=== PATIENT | male | born 1945 ===

== ENCOUNTER 2017-04-18 10:20 | Inpatient (IN) | payer MEDICARE, MEDICAID ==
[2017-04-18 10:20] VITALS: BMI 23.6
--- NOTE | 2017-04-18 10:59 | C.PDOC ---
History Of Present Illness 72 year old male with a PMHx of Atrial fibrillation, COPD, CAD, CABG and CHF presents to the ED with complaints of chest pain. Patient reports approximately 1 hour prior to arrival, while sitting up in bed, he began to feel localized left sided chest pain. Pain is over the site of his pacemaker. Patient notes associated shortness of breath. H/o similar episodes multiple times before. Patient denies radiation of pain, fever, chills, sweating, nausea, vomiting, weakness, numbness, or other complaints at this time. PMD: Dr. Mauricio Jackson Manufacturing Engineer Machining: Dr. Hansen Time Seen by Provider: 04/18/17 10:44 Chief Complaint (Nursing): Chest Pain History Per: Patient History/Exam Limitations: no limitations Onset/Duration Of Symptoms: Hrs (1 hr prior to arrival) Current Symptoms Are (Timing): Still Present Quality: "Pain". denies: Pressure Associated Symptoms: denies: Nausea, Dyspnea, Syncope Exacerbating Factors: None Alleviating Factors: None Recent travel outside of the [place]: No Additional History Per: Prior Records Past Medical History Reviewed: Historical Data, Nursing Documentation, Vital Signs Vital Signs: Last Vital Signs Temp 98.1 F 04/18/17 16:12 Pulse 71 04/18/17 16:12 Resp 20 04/18/17 16:12 BP 190/83 H 04/18/17 17:36 Pulse Ox 97 04/18/17 16:12 - Medical History PMH: Anemia, Anxiety, Arthritis, Asthma, Atrial Fibrillation, CAD, CHF, COPD, HTN, Hypercholesterolemia, Osteoporosis Surgical History: CABG, Cholecystectomy, Pacemaker - [facility] Procedures CYSTOSCOPY NEC (10/08/13) ESOPHAGOGASTRODUODENOSCOPY [EGD] W/CLOSED BIOPSY (05/31/13) EXERCISE TREATMENT OF MUSCULOSK WHOLE USING ASSIST EQUIPMENT (11/22/16) GAIT TRAINING/AMBULAT TREATMENT USING ASSIST EQUIPMENT (11/22/16) HOME MANAGEMENT TREATMENT (11/25/15) HOME MANAGEMENT TREATMENT USING ASSIST EQUIPMENT (11/22/16) MANUAL THERAPY TECHNIQUES TREATMENT OF MUSCULOSK UP BACK/UE (11/25/15) NEBULIZER THERAPY (05/31/13) OCCUPATIONAL THERAPY (10/12/13) PHYSICAL THERAPY NEC (10/12/13) ROM & JT MOBILITY TRMT MUSCULOSK LOW BACK/LE W ASSIST EQUIP (11/25/15) THERAPEUTIC EXERCISE TREATMENT OF MUSCULOSK LOW BACK/LE (11/25/15) TRANSURETH BLADD BIOPSY (10/08/13) VACCINATION NEC (07/10/13) Family History: States: Unknown Family Hx - Social History Hx Alcohol Use: No Hx Substance Use: No Review Of Systems Constitutional: Negative for: Fever, Chills Cardiovascular: Positive for: Chest Pain. Negative for: Palpitations Respiratory: Positive for: Shortness of Breath. Negative for: Cough Gastrointestinal: Negative for: Nausea, Vomiting, Abdominal Pain, Diarrhea Musculoskeletal: Negative for: Arm Pain Neurological: Negative for: Weakness, Numbness Physical Exam - Physical Exam Appears: Non-toxic, No Acute Distress Skin: Warm, Dry, No Rash, Other (hyperpigmentation of lower extremities) Head: Atraumatic, Normacephalic, No Tenderness Eye(s): bilateral: Normal Inspection, PERRL, EOMI Nose: Normal Oral Mucosa: Moist Neck: Normal ROM, Supple Chest: Symmetrical, No Deformity, Tenderness (tenderness over the pacemake) Cardiovascular: Rhythm Regular, No Murmur Respiratory: No Rales, No Rhonchi, No Wheezing, Other (clear to auscultation bilaterally) Gastrointestinal/Abdominal: Soft, No Tenderness, No Distention, No Guarding, No Rebound Extremity: Normal ROM, No Tenderness, No Pedal Edema, No Calf Tenderness, Capillary Refill (<2 seconds ), No Swelling Neurological/Psych: Oriented x3 Gait: Steady ED Course And Treatment - Laboratory Results Result Diagrams: 04/18/17 11:36 04/18/17 11:36 ECG: Interpreted By Me, Viewed By Me ECG Rhythm: Sinus Rhythm, L BBB ECG Interpretation: No Changes From Prior Interpretation Of ECG: T-wave inversions in 2 and 3. AVF. L BBB unchanged from 03/30/2017. O2 Sat by Pulse Oximetry: 96 (RA) Pulse Ox Interpretation: Normal Progress Note: Spoke to Dr. Jackson, who notes pt h/o EF 20%. 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 Dr Jackson requests patient be admitted to medicine service. Disposition - Disposition Disposition: HOSPITALIZED Disposition Time: 16:55 Condition: STABLE - Clinical Impression Clinical Impression: Chest pain, CHF (congestive heart failure), Anxiety - PA / HUMAN SERVICE WORKER / Resident Statement MD/DO has reviewed & agrees with the documentation as recorded. - Scribe Statement The provider has reviewed the documentation as recorded by the Crescencioibraymundo Fontanez All medical record entries made by the Jaspreet were at my direction and personally dictated by me. I have reviewed the chart and agree that the record accurately reflects my personal performance of the history, physical exam, medical decision making, and the department course for this patient. I have also personally directed, reviewed, and agree with the discharge instructions and disposition.
[2017-04-18 11:47] LABS: BASO % 0.5 % (0.0-2.0); EOS # 0.1 K/uL (0.0-0.7); EOS % 0.9 % (0.0-4.0); HEMATOCRIT 47.7 % (35.0-51.0); LYMPH # 1.5 K/uL (1.0-4.3); LYMPH % 20.1 % (20.0-40.0); MEAN CELL VOLUME 88.2 fL (80.0-94.0); MEAN CORPUSCULAR HEMOGLOBIN 29.7 pg (27.0-31.0); MEAN CORPUSCULAR HGB CONC 33.6 g/dL (33.0-37.0); MEAN PLATELET VOLUME 9.5 fL (7.2-11.7); MONO # 0.4 K/uL (0.0-0.8); MONO % 5.3 % (0.0-10.0); NRBC % 0.1 % (0.0-2.0); RED CELL DISTRIBUTION WIDTH 14.2 % (11.5-14.5); WHITE BLOOD COUNT 7.3 K/uL (4.8-10.8)
[2017-04-18 11:52] LABS: URINE BILIRUBIN NEGATIVE (NEGATIVE); URINE BLOOD NEGATIVE (NEGATIVE); URINE COLOR Yellow (YELLOW); URINE GLUCOSE (UA) NORMAL (Normal); URINE KETONE NEGATIVE (NEGATIVE); URINE LEUKOCYTE ESTERASE NEG Leu/uL (Negative); URINE PROTEIN NEGATIVE (NEGATIVE); URINE UROBILINOGEN NORMAL mg/dL (0.2-1.0)
[2017-04-18 11:58] LABS: INR 1.1
[2017-04-18 12:01] LABS: BILIRUBIN,TOTAL 1.2 mg/dL (0.2-1.3); CALCIUM 9.1 mg/dl (8.6-10.4); GFR AFRICAN-AMERICAN > 60; GLUCOSE,RANDOM 164 mg/dL (75-110); TOTAL PROTEIN 8.3 g/dL (6.3-8.3)
--- NOTE | 2017-04-18 12:09 | RAD ---
Chest x-ray single frontal view History: Chest pain. Comparison none available. Findings: Moderate venous congestion. Right hilar prominence. Cardiomegaly. Status post median sternotomy and CABG. Left-sided pacemaker. Degenerative changes in the spine shoulders. Calcification at aortic knob. Impression: Moderate venous congestion. Right hilar prominence. Cardiomegaly.
[2017-04-18 12:13] LABS: ALB/GLOB RATIO 1.4 (1.0-2.1); ALKALINE PHOSPHATASE 92 U/L (38-126); ALT/SGPT 148 U/L (21-72); AST/SGOT 128 U/L (17-59); BLOOD UREA NITROGEN 16 mg/dL (9-20); CARBON DIOXIDE 28 mmol/L (22-30); CHLORIDE 100 mmol/L (98-107); SODIUM 141 mmol/L (132-148)
[2017-04-18] MEDS ORDERED: Fluticasone Nasal 50 mcg/Spray NAS PRN (15:47)
--- NOTE | 2017-04-18 19:23 | CP.PCM.HP ---
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 Pt began to feel the chest pain while sitting up in bed. Chest pain localized over site of pacemaker on left side of chest. Pt reports multiple prior episodes of similar chest pain. Patient denies fever, chills, palpitations, syncope, diaphoresis, n/ v/d, abdominal pain, weakness or numbness. Present on Admission - Present on Admission Any Indicators Present on Admission: No Review of Systems - Cardiovascular Cardiovascular: Chest Pain, Dyspnea Past Patient History - Past Medical History & Family History Past Medical History?: Yes - Past Social History Smoking Status: Never Smoked - CARDIAC Hx Atrial Fibrillation: Yes Hx Congestive Heart Failure: Yes Hx Hypercholesterolemia: Yes Hx Hypertension: Yes Hx Pacemaker: Yes - PULMONARY Hx Asthma: Yes Hx Chronic Obstructive Pulmonary Disease (COPD): Yes - NEUROLOGICAL Hx Neurological Disorder: Yes Hx Dizziness: Yes - HEENT Hx HEENT Problems: Yes Hx Deafness: Yes (rt ear) - RENAL Hx Chronic Kidney Disease: No - ENDOCRINE/METABOLIC Hx Hypothyroidism: No - HEMATOLOGICAL/ONCOLOGICAL Hx Anemia: Yes - INTEGUMENTARY Hx Dermatological Problems: No - MUSCULOSKELETAL/RHEUMATOLOGICAL Hx Arthritis: Yes Hx Osteoporosis: Yes - GASTROINTESTINAL Hx Gastrointestinal Disorders: Yes Hx Gastroesophageal Reflux: Yes - GENITOURINARY/GYNECOLOGICAL Hx Genitourinary Disorders: Yes Hx Prostate Problems: Yes (BPH) Hx Urinary Tract Infection: Yes - PSYCHIATRIC Hx Anxiety: Yes Hx Substance Use: No - SURGICAL HISTORY Hx Cholecystectomy: Yes Hx Coronary Artery Bypass Graft: Yes - ANESTHESIA Hx Anesthesia: Yes Hx Anesthesia Reactions: No Hx Malignant Hyperthermia: No Meds Home Medications: Home Medication List Medication Instructions Recorded Confirmed Type Enalapril Maleate [Vasotec] 5 mg PO BID #60 tab 04/21/17 Rx Furosemide [Lasix] 20 mg PO DAILY #30 tab 04/21/17 Rx Allergies/Adverse Reactions: Allergies Allergy/AdvReac Type Severity Reaction Status Date / Time morphine Allergy RASH Verified 11/22/16 18:53 Physical Exam - Constitutional Appears: Well - Head Exam Head Exam: ATRAUMATIC, NORMAL INSPECTION, NORMOCEPHALIC - Eye Exam Eye Exam: EOMI, Normal appearance, PERRL Pupil Exam: NORMAL ACCOMODATION, PERRL - ENT Exam ENT Exam: Mucous Membranes Moist, Normal Exam - Neck Exam Neck exam: Positive for: Normal Inspection - Respiratory Exam Respiratory Exam: Decreased Breath Sounds - Cardiovascular Exam Cardiovascular Exam: REGULAR RHYTHM, +S1, +S2 - GI/Abdominal Exam GI & Abdominal Exam: Diminished Bowel Sounds, Soft - Rectal Exam Rectal Exam: Deferred - Neurological Exam Neurological exam: Alert, Oriented x3 Results - Vital Signs Recent Vital Signs: Last Vital Signs Temp 98.1 F 04/18/17 16:12 Pulse 71 04/18/17 16:12 Resp 20 04/18/17 16:12 BP 190/83 H 04/18/17 17:36 Pulse Ox 96 04/18/17 17:55 - Labs Result Diagrams: 04/21/17 13:26 04/21/17 13:26 Labs: Laboratory Results - last 24 hr 04/18/17 04/18/17 04/18/17 11:36 11:36 11:36 WBC 7.3 RBC 5.41 Hgb 16.0 Hct 47.7 MCV 88.2 MCH 29.7 MCHC 33.6 RDW 14.2 Plt Count 152 MPV 9.5 Neut % (Auto) 73.2 Lymph % (Auto) 20.1 [place] % (Auto) 5.3 Eos % (Auto) 0.9 Baso % (Auto) 0.5 Neut # 5.3 Lymph # 1.5 [place] # 0.4 Eos # 0.1 Baso # 0.0 PT 12.2 INR 1.1 APTT 32 Sodium Potassium Chloride Carbon Dioxide Anion Gap BUN Creatinine Est GFR ( Amer) Est GFR (Non-Af Amer) POC Glucose (mg/dL) Random Glucose Calcium Total Bilirubin AST ALT Alkaline Phosphatase Total Creatine Kinase CK-MB (Mass) Troponin I NT-Pro-B Natriuret Pep Total Protein Albumin Globulin Albumin/Globulin Ratio Lipase Urine Color Yellow Urine Clarity Clear Urine pH 6.0 Ur Specific Rea 1.014 Urine Protein Negative Urine Glucose (UA) Normal Urine Ketones Negative Urine Blood Negative Urine Nitrate Negative Urine Bilirubin Negative Urine Urobilinogen Normal Ur Leukocyte Esterase Neg 04/18/17 04/18/17 11:36 16:22 WBC RBC Hgb Hct MCV MCH MCHC RDW Plt Count MPV Neut % (Auto) Lymph % (Auto) [place] % (Auto) Eos % (Auto) Baso % (Auto) Neut # Lymph # [place] # Eos # Baso # PT INR APTT Sodium 141 Potassium 4.0 Chloride 100 Carbon Dioxide 28 Anion Gap 17 BUN 16 Creatinine 0.9 Est GFR ( Amer) > 60 Est GFR (Non-Af Amer) > 60 POC Glucose (mg/dL) 99 Random Glucose 164 H Calcium 9.1 Total Bilirubin 1.2 AST 128 H D ALT 148 H Alkaline Phosphatase 92 Total Creatine Kinase 58 CK-MB (Mass) 1.58 Troponin I 0.0120 NT-Pro-B Natriuret Pep 2290 H Total Protein 8.3 Albumin 4.8 Globulin 3.5 Albumin/Globulin Ratio 1.4 Lipase 142 Urine Color Urine Clarity Urine pH Ur Specific Rea Urine Protein Urine Glucose (UA) Urine Ketones Urine Blood Urine Nitrate Urine Bilirubin Urine Urobilinogen Ur Leukocyte Esterase Assessment & Plan (1) CHF (congestive heart failure) Status: Acute (2) Chest pain Status: Acute (3) Anxiety Status: Chronic Priority: Medium (4) Abdominal pain, RLQ Status: Acute Priority: High (5) Abdominal pain, RUQ Status: Acute (6) Abdominal pain, RUQ Status: Acute Priority: High (7) Acute chest pain Status: Acute (8) Blood pressure instability Status: Acute (9) CHF exacerbation Status: Acute (10) COPD exacerbation Status: Acute Priority: Medium (11) Chest pain Status: Acute Priority: High (12) Chest pain, atypical Status: Acute Priority: High (13) Diverticulosis Status: Acute (14) Headache Status: Acute (15) Labile hypertension Status: Acute Priority: High (16) Migraine Status: Acute (17) UTI (urinary tract infection) Status: Acute (18) Weakness of both lower extremities Status: Acute Priority: High (19) A-fib Status: Chronic (20) Abdominal pain, suprapubic Status: Chronic Priority: Low (21) COPD (chronic obstructive pulmonary disease) Status: Chronic Priority: Medium (22) Chronic headache disorder Status: Chronic Priority: Medium (23) DMII (diabetes mellitus, type 2) Status: Chronic Priority: Medium (24) Dizziness Status: Chronic Priority: Medium (25) Dyslipidemia Status: Chronic Priority: Medium (26) Generalized weakness Status: Chronic Priority: High (27) Head ache Status: Chronic Priority: High (28) Hx of CABG Status: Chronic Priority: Medium (29) Hypertension Status: Chronic Priority: High (30) Left-sided chest wall pain Status: Chronic Priority: High (31) Orthostatic tremor Status: Chronic (32) Pacemaker Status: Chronic Priority: Medium (33) Unspecified abnormalities of gait and mobility Status: Chronic Priority: High - Assessment and Plan (Free Text) Plan: ekg cxr josephine x3 q8h asa plavix ranexa pepcid cardio gi dr flowers medmarie as ordered f/u labs heart healthy diet
[2017-04-18] MEDS ORDERED: Tramadol 25 mg PO ONE (19:45)
[2017-04-18 20:50] LABS: TROPONIN I 0.021 ng/mL (0.00-0.120)
--- NOTE | 2017-04-18 21:35 | US ---
EXAM: US Abdomen Limited, Right Upper Quadrant EXAM DATE/TIME: Exam ordered 04/18/2017 7:59 PM CLINICAL HISTORY: 72 years old, male; Pain; Abdominal pain; Prior surgery; Surgery type: Gallbladder; Additional info: Abd pain and elevated lft's TECHNIQUE: Real-time ultrasound of the right upper quadrant with image documentation. COMPARISON: No relevant prior studies available. FINDINGS: Liver: There is normal blood flow direction the main portal vein. The liver measures 12 cm in craniocaudal span. No intrahepatic bile duct dilation. Gallbladder: The gallbladder is not seen as a separate structure. Common bile duct: The common bile duct measures 7 mm. No stones. No dilation. Pancreas: The pancreas is not well-seen due to bowel gas. Right kidney: The right kidney measures 10.5 x 4.8 x 5 cm. No stones. No hydronephrosis. IMPRESSION: 1. The gallbladder is surgically absent. The pancreas is not well-seen due to bowel gas. Otherwise unremarkable exam
[2017-04-19 04:24] LABS: TROPONIN I 0.014 ng/mL (0.00-0.120)
[2017-04-19] MEDS: Tiotropium 18 mcg Cap For Inhalation INH SCH (08:32)
[2017-04-19] MEDS: Ranolazine 500 mg Extended Release Tablets PO SCH (09:34)
[2017-04-19] MEDS: Multiple Vitamins Tab PO SCH (09:35)
--- NOTE | 2017-04-19 09:51 | CP.PCM.CON ---
<Darshana Alberts - Last Filed: 04/19/17 09:45> History of Present Illness - History of Present Illness History of Present Illness: GI Fellow PGY 4 Consult Note This is a 72yM with pmhx of CAD, CABG, SSS, s/p PPM, dyslipidemia, CHF EF 15-20 % presenting with complaints of Right sided abdominal pain and chest pain. Pt reports that abdominal pain started yesterday was a dull ache, non radiating, constant with associated nausea but no vomiting, diarrhea or constipation. Pt took bentyl and reglan at home which helped. Pt was diagnosed with left sided recto-sigmoid colitis 03/31/[address] imaging at [facility] and treated with abx cipro/ flagyl which pt completed. Pt says he has a large regular Bm daily in am with no melena, hematcheia and no hard stool. Pt was also found to have elevated LFTs on this admission, pt denies any alcohol use, hx of hepatitis. Pt reports colonoscopy 1 yr ago that was normal but is unable to recall physician and no records available. ROS: A 12pt ROS was neg PmHx: As stated in HPI PsHx: As stated in HPI FHx: denies SHx: former social etoh quit many years ago Past Patient History - Past Medical History & Family History Past Medical History?: Yes - Past Social History Smoking Status: Never Smoked - CARDIAC Hx Atrial Fibrillation: Yes Hx Congestive Heart Failure: Yes Hx Hypercholesterolemia: Yes Hx Hypertension: Yes Hx Pacemaker: Yes - PULMONARY Hx Asthma: Yes Hx Chronic Obstructive Pulmonary Disease (COPD): Yes - NEUROLOGICAL Hx Neurological Disorder: Yes Hx Dizziness: Yes - HEENT Hx HEENT Problems: Yes Hx Deafness: Yes (rt ear) - RENAL Hx Chronic Kidney Disease: No - ENDOCRINE/METABOLIC Hx Hypothyroidism: No - HEMATOLOGICAL/ONCOLOGICAL Hx Anemia: Yes - INTEGUMENTARY Hx Dermatological Problems: No - MUSCULOSKELETAL/RHEUMATOLOGICAL Hx Arthritis: Yes Hx Osteoporosis: Yes - GASTROINTESTINAL Hx Gastrointestinal Disorders: Yes Hx Gastroesophageal Reflux: Yes - GENITOURINARY/GYNECOLOGICAL Hx Genitourinary Disorders: Yes Hx Prostate Problems: Yes (BPH) Hx Urinary Tract Infection: Yes - PSYCHIATRIC Hx Anxiety: Yes Hx Substance Use: No - SURGICAL HISTORY Hx Cholecystectomy: Yes Hx Coronary Artery Bypass Graft: Yes - ANESTHESIA Hx Anesthesia: Yes Hx Anesthesia Reactions: No Hx Malignant Hyperthermia: No Meds Allergies/Adverse Reactions: Allergies Allergy/AdvReac Type Severity Reaction Status Date / Time morphine Allergy RASH Verified 11/22/16 18:53 - Medications Medications: Current Medications Acetaminophen (Tylenol 325mg Tab) 325 mg PO Q6 PRN PRN Reason: Pain, Mild (1-3) Last Admin: 04/19/17 06:59 Dose: 325 mg Alprazolam (Xanax) 0.5 mg PO BID [facility] Last Admin: 04/19/17 09:34 Dose: 0.5 mg Amlodipine Besylate (Norvasc) 2.5 mg PO DAILY [facility] Last Admin: 04/19/17 09:34 Dose: 2.5 mg Ascorbic Acid (Vitamin C 500 Mg Tab) 500 mg PO DAILY [facility] Aspirin (Aspirin) 325 mg PO DAILY [facility] Last Admin: 04/19/17 09:34 Dose: 325 mg Carvedilol (Coreg) 25 mg PO BID [facility] Last Admin: 04/19/17 09:35 Dose: 25 mg Clopidogrel Bisulfate (Plavix) 75 mg PO DAILY [facility] Last Admin: 04/19/17 09:34 Dose: 75 mg Dicyclomine HCl (Bentyl) 20 mg PO TID PRN PRN Reason: Abdominal cramping Last Admin: 04/19/17 02:54 Dose: 20 mg Famotidine (Pepcid) 40 mg PO HS [facility] Last Admin: 04/18/17 22:21 Dose: 40 mg Fluticasone Propionate (Flonase) 2 spr SHAYY DAILY PRN PRN Reason: Allergy symptoms Furosemide (Lasix) 20 mg PO DAILY [facility] Last Admin: 04/19/17 09:35 Dose: 20 mg Home Med (Budesonide/Formoterol Fumarate [Symbicort 160-4.5 Mcg Inhaler]) 2 puff IH Q12H [facility] Home Med (Valsartan [Diovan]) 80 mg PO BID [facility] Loratadine (Claritin) 10 mg PO HS [facility] Last Admin: 04/18/17 22:21 Dose: 10 mg Metformin HCl (Glucophage) 500 mg PO BID [facility] Last Admin: 04/19/17 09:35 Dose: 500 mg Multivitamins (Hexavitamin) 1 tab PO DAILY [facility] Last Admin: 04/19/17 09:35 Dose: 1 tab Pneumococcal Polyvalent Vaccine (Pneumovax 23 Vaccine) 0.5 ml IM .ONCE ONE Stop: 04/20/17 10:01 Ranolazine (Ranexa) 500 mg PO DAILY [facility] Last Admin: 04/19/17 09:34 Dose: 500 mg Rosuvastatin Calcium (Crestor) 40 mg PO HS [facility] Last Admin: 04/18/17 22:21 Dose: 40 mg Tamsulosin HCl (Flomax) 0.4 mg PO DAILY [facility] Last Admin: 04/19/17 09:34 Dose: 0.4 mg Tiotropium [place] (Spiriva) 18 mcg INH RQ24 [facility] Last Admin: 04/19/17 08:32 Dose: Not Given Physical Exam - Constitutional Appears: No Acute Distress - Head Exam Head Exam: ATRAUMATIC, NORMAL INSPECTION, NORMOCEPHALIC - Eye Exam Eye Exam: EOMI, Normal appearance, PERRL Pupil Exam: PERRL - ENT Exam ENT Exam: Mucous Membranes Moist, Normal Exam - Neck Exam Neck exam: Positive for: Normal Inspection - Respiratory Exam Respiratory Exam: Decreased Breath Sounds, NORMAL BREATHING PATTERN - Cardiovascular Exam Cardiovascular Exam: REGULAR RHYTHM, +S1, +S2 - GI/Abdominal Exam GI & Abdominal Exam: Normal Bowel Sounds, Soft, Tenderness. absent: Distended, Guarding, Organomegaly - Rectal Exam Rectal Exam: Deferred - Extremities Exam Extremities exam: Positive for: full ROM, normal inspection. Negative for: pedal edema - Back Exam Back exam: NORMAL INSPECTION - Neurological Exam Neurological exam: Alert, Oriented x3 - Psychiatric Exam Psychiatric exam: Normal Affect, Normal Mood - Skin Skin Exam: Dry, Intact, Normal Color, Warm Results - Vital Signs Recent Vital Signs: Last Vital Signs Temp 98.6 F 04/19/17 07:01 Pulse 69 04/19/17 07:01 Resp 20 04/19/17 07:01 BP 193/90 H 04/19/17 09:35 Pulse Ox 99 04/19/17 07:01 - Labs Result Diagrams: 04/18/17 11:36 04/18/17 11:36 Labs: Laboratory Results - last 24 hr 04/18/17 04/18/17 04/18/17 11:36 11:36 11:36 WBC 7.3 RBC 5.41 Hgb 16.0 Hct 47.7 MCV 88.2 MCH 29.7 MCHC 33.6 RDW 14.2 Plt Count 152 MPV 9.5 Neut % (Auto) 73.2 Lymph % (Auto) 20.1 [place] % (Auto) 5.3 Eos % (Auto) 0.9 Baso % (Auto) 0.5 Neut # 5.3 Lymph # 1.5 [place] # 0.4 Eos # 0.1 Baso # 0.0 PT 12.2 INR 1.1 APTT 32 Sodium Potassium Chloride Carbon Dioxide Anion Gap BUN Creatinine Est GFR ( Amer) Est GFR (Non-Af Amer) POC Glucose (mg/dL) Random Glucose Calcium Total Bilirubin AST ALT Alkaline Phosphatase Total Creatine Kinase CK-MB (Mass) Troponin I NT-Pro-B Natriuret Pep Total Protein Albumin Globulin Albumin/Globulin Ratio Lipase Urine Color Yellow Urine Clarity Clear Urine pH 6.0 Ur Specific [place] 1.014 Urine Protein Negative Urine Glucose (UA) Normal Urine Ketones Negative Urine Blood Negative Urine Nitrate Negative Urine Bilirubin Negative Urine Urobilinogen Normal Ur Leukocyte Esterase Neg Hepatitis A IgM Ab Hep Bs Antigen Hep B Core IgM Ab Hepatitis C Antibody 04/18/17 04/18/17 04/18/17 11:36 16:22 19:49 WBC RBC Hgb Hct MCV MCH MCHC RDW Plt Count MPV Neut % (Auto) Lymph % (Auto) [place] % (Auto) Eos % (Auto) Baso % (Auto) Neut # Lymph # [place] # Eos # Baso # PT INR APTT Sodium 141 Potassium 4.0 Chloride 100 Carbon Dioxide 28 Anion Gap 17 BUN 16 Creatinine 0.9 Est GFR ( Amer) > 60 Est GFR (Non-Af Amer) > 60 POC Glucose (mg/dL) 99 Random Glucose 164 H Calcium 9.1 Total Bilirubin 1.2 AST 128 H D ALT 148 H Alkaline Phosphatase 92 Total Creatine Kinase 58 71 CK-MB (Mass) 1.58 1.60 Troponin I 0.0120 0.0210 NT-Pro-B Natriuret Pep 2290 H Total Protein 8.3 Albumin 4.8 Globulin 3.5 Albumin/Globulin Ratio 1.4 Lipase 142 Urine Color Urine Clarity Urine pH Ur Specific [place] Urine Protein Urine Glucose (UA) Urine Ketones Urine Blood Urine Nitrate Urine Bilirubin Urine Urobilinogen Ur Leukocyte Esterase Hepatitis A IgM Ab Hep Bs Antigen Hep B Core IgM Ab Hepatitis C Antibody 04/18/17 04/19/17 04/19/17 21:49 03:56 03:56 WBC RBC Hgb Hct MCV MCH MCHC RDW Plt Count MPV Neut % (Auto) Lymph % (Auto) [place] % (Auto) Eos % (Auto) Baso % (Auto) Neut # Lymph # [place] # Eos # Baso # PT INR APTT Sodium Potassium Chloride Carbon Dioxide Anion Gap BUN Creatinine Est GFR ( Amer) Est GFR (Non-Af Amer) POC Glucose (mg/dL) 122 H Random Glucose Calcium Total Bilirubin AST ALT Alkaline Phosphatase Total Creatine Kinase 54 L CK-MB (Mass) 1.43 Troponin I 0.0140 NT-Pro-B Natriuret Pep Total Protein Albumin Globulin Albumin/Globulin Ratio Lipase Urine Color Urine Clarity Urine pH Ur Specific [place] Urine Protein Urine Glucose (UA) Urine Ketones Urine Blood Urine Nitrate Urine Bilirubin Urine Urobilinogen Ur Leukocyte Esterase Hepatitis A IgM Ab No result Hep Bs Antigen Negative Hep B Core IgM Ab No result Hepatitis C Antibody No result 04/19/17 06:07 WBC RBC Hgb Hct MCV MCH MCHC RDW Plt Count MPV Neut % (Auto) Lymph % (Auto) [place] % (Auto) Eos % (Auto) Baso % (Auto) Neut # Lymph # [place] # Eos # Baso # PT INR APTT Sodium Potassium Chloride Carbon Dioxide Anion Gap BUN Creatinine Est GFR ( Amer) Est GFR (Non-Af Amer) POC Glucose (mg/dL) 111 H Random Glucose Calcium Total Bilirubin AST ALT Alkaline Phosphatase Total Creatine Kinase CK-MB (Mass) Troponin I NT-Pro-B Natriuret Pep Total Protein Albumin Globulin Albumin/Globulin Ratio Lipase Urine Color Urine Clarity Urine pH Ur Specific [place] Urine Protein Urine Glucose (UA) Urine Ketones Urine Blood Urine Nitrate Urine Bilirubin Urine Urobilinogen Ur Leukocyte Esterase Hepatitis A IgM Ab Hep Bs Antigen Hep B Core IgM Ab Hepatitis C Antibody Assessment & Plan - Assessment and Plan (Free Text) Assessment: This is a 72yM presenting with complaints of right sided abdominal pain for one day associated with nausea. 1. Abdominal pain 2. Elevated LFTs 3. CHF EF 15-20% 4. Hx of Colitis left sided 03/31/17 Plan: -Continue supportive care with anti-emetics and pain control -LFTs elevated maybe secondary to congestive hepatopathy from hx of CHF, optimize cardiac function, will trend LFTs, medication list reviewed, will order autoimmune workup and hepatitis panel pending -Advance diet as tolerated -Abdominal US reviewed with cholecystectomy, no liver pathology -Will order CT Abdominal Angio with hx of CAD and concern for possible post prandial pain -No signs of infection, no abx, no fevers, no WBC -Further recommendations after imaging -Will continue to follow closely <Dirk Joshua - Last Filed: 04/19/17 10:23> Meds - Medications Medications: Current Medications Acetaminophen (Tylenol 325mg Tab) 325 mg PO Q6 PRN PRN Reason: Pain, Mild (1-3) Last Admin: 04/19/17 06:59 Dose: 325 mg Alprazolam (Xanax) 0.5 mg PO BID [facility] Last Admin: 04/19/17 09:34 Dose: 0.5 mg Amlodipine Besylate (Norvasc) 2.5 mg PO DAILY [facility] Last Admin: 04/19/17 09:34 Dose: 2.5 mg Ascorbic Acid (Vitamin C 500 Mg Tab) 500 mg PO DAILY [facility] Last Admin: 04/19/17 09:40 Dose: 500 mg Aspirin (Aspirin) 325 mg PO DAILY [facility] Last Admin: 04/19/17 09:34 Dose: 325 mg Carvedilol (Coreg) 25 mg PO BID [facility] Last Admin: 04/19/17 09:35 Dose: 25 mg Clopidogrel Bisulfate (Plavix) 75 mg PO DAILY [facility] Last Admin: 04/19/17 09:34 Dose: 75 mg Dicyclomine HCl (Bentyl) 20 mg PO TID PRN PRN Reason: Abdominal cramping Last Admin: 04/19/17 02:54 Dose: 20 mg Famotidine (Pepcid) 40 mg PO HS [facility] Last Admin: 04/18/17 22:21 Dose: 40 mg Fluticasone Propionate (Flonase) 2 spr SHAYY DAILY PRN PRN Reason: Allergy symptoms Furosemide (Lasix) 20 mg PO DAILY [facility] Last Admin: 04/19/17 09:35 Dose: 20 mg Home Med (Budesonide/Formoterol Fumarate [Symbicort 160-4.5 Mcg Inhaler]) 2 puff IH Q12H [facility] Home Med (Valsartan [Diovan]) 80 mg PO BID [facility] Loratadine (Claritin) 10 mg PO HS [facility] Last Admin: 04/18/17 22:21 Dose: 10 mg Metformin HCl (Glucophage) 500 mg PO BID [facility] Last Admin: 04/19/17 09:35 Dose: 500 mg Multivitamins (Hexavitamin) 1 tab PO DAILY [facility] Last Admin: 04/19/17 09:35 Dose: 1 tab Pneumococcal Polyvalent Vaccine (Pneumovax 23 Vaccine) 0.5 ml IM .ONCE ONE Stop: 04/20/17 10:01 Ranolazine (Ranexa) 500 mg PO DAILY [facility] Last Admin: 04/19/17 09:34 Dose: 500 mg Rosuvastatin Calcium (Crestor) 40 mg PO HS [facility] Last Admin: 04/18/17 22:21 Dose: 40 mg Tamsulosin HCl (Flomax) 0.4 mg PO DAILY [facility] Last Admin: 04/19/17 09:34 Dose: 0.4 mg Tiotropium [place] (Spiriva) 18 mcg INH RQ24 [facility] Last Admin: 04/19/17 08:32 Dose: Not Given Results - Vital Signs Recent Vital Signs: Last Vital Signs Temp 98.6 F 04/19/17 07:01 Pulse 69 04/19/17 07:01 Resp 20 04/19/17 07:01 BP 193/90 H 04/19/17 09:35 Pulse Ox 99 04/19/17 07:01 - Labs Result Diagrams: 04/18/17 11:36 04/18/17 11:36 Labs: Laboratory Results - last 24 hr 04/18/17 04/18/17 04/18/17 11:36 11:36 11:36 WBC 7.3 RBC 5.41 Hgb 16.0 Hct 47.7 MCV 88.2 MCH 29.7 MCHC 33.6 RDW 14.2 Plt Count 152 MPV 9.5 Neut % (Auto) 73.2 Lymph % (Auto) 20.1 [place] % (Auto) 5.3 Eos % (Auto) 0.9 Baso % (Auto) 0.5 Neut # 5.3 Lymph # 1.5 [place] # 0.4 Eos # 0.1 Baso # 0.0 PT 12.2 INR 1.1 APTT 32 Sodium Potassium Chloride Carbon Dioxide Anion Gap BUN Creatinine Est GFR ( Amer) Est GFR (Non-Af Amer) POC Glucose (mg/dL) Random Glucose Calcium Total Bilirubin AST ALT Alkaline Phosphatase Total Creatine Kinase CK-MB (Mass) Troponin I NT-Pro-B Natriuret Pep Total Protein Albumin Globulin Albumin/Globulin Ratio Lipase Urine Color Yellow Urine Clarity Clear Urine pH 6.0 Ur Specific [place] 1.014 Urine Protein Negative Urine Glucose (UA) Normal Urine Ketones Negative Urine Blood Negative Urine Nitrate Negative Urine Bilirubin Negative Urine Urobilinogen Normal Ur Leukocyte Esterase Neg Hepatitis A IgM Ab Hep Bs Antigen Hep B Core IgM Ab Hepatitis C Antibody 04/18/17 04/18/17 04/18/17 11:36 16:22 19:49 WBC RBC Hgb Hct MCV MCH MCHC RDW Plt Count MPV Neut % (Auto) Lymph % (Auto) [place] % (Auto) Eos % (Auto) Baso % (Auto) Neut # Lymph # [place] # Eos # Baso # PT INR APTT Sodium 141 Potassium 4.0 Chloride 100 Carbon Dioxide 28 Anion Gap 17 BUN 16 Creatinine 0.9 Est GFR ( Amer) > 60 Est GFR (Non-Af Amer) > 60 POC Glucose (mg/dL) 99 Random Glucose 164 H Calcium 9.1 Total Bilirubin 1.2 AST 128 H D ALT 148 H Alkaline Phosphatase 92 Total Creatine Kinase 58 71 CK-MB (Mass) 1.58 1.60 Troponin I 0.0120 0.0210 NT-Pro-B Natriuret Pep 2290 H Total Protein 8.3 Albumin 4.8 Globulin 3.5 Albumin/Globulin Ratio 1.4 Lipase 142 Urine Color Urine Clarity Urine pH Ur Specific [place] Urine Protein Urine Glucose (UA) Urine Ketones Urine Blood Urine Nitrate Urine Bilirubin Urine Urobilinogen Ur Leukocyte Esterase Hepatitis A IgM Ab Hep Bs Antigen Hep B Core IgM Ab Hepatitis C Antibody 04/18/17 04/19/17 04/19/17 21:49 03:56 03:56 WBC RBC Hgb Hct MCV MCH MCHC RDW Plt Count MPV Neut % (Auto) Lymph % (Auto) [place] % (Auto) Eos % (Auto) Baso % (Auto) Neut # Lymph # [place] # Eos # Baso # PT INR APTT Sodium Potassium Chloride Carbon Dioxide Anion Gap BUN Creatinine Est GFR ( Amer) Est GFR (Non-Af Amer) POC Glucose (mg/dL) 122 H Random Glucose Calcium Total Bilirubin AST ALT Alkaline Phosphatase Total Creatine Kinase 54 L CK-MB (Mass) 1.43 Troponin I 0.0140 NT-Pro-B Natriuret Pep Total Protein Albumin Globulin Albumin/Globulin Ratio Lipase Urine Color Urine Clarity Urine pH Ur Specific [place] Urine Protein Urine Glucose (UA) Urine Ketones Urine Blood Urine Nitrate Urine Bilirubin Urine Urobilinogen Ur Leukocyte Esterase Hepatitis A IgM Ab No result Hep Bs Antigen Negative Hep B Core IgM Ab No result Hepatitis C Antibody No result 04/19/17 06:07 WBC RBC Hgb Hct MCV MCH MCHC RDW Plt Count MPV Neut % (Auto) Lymph % (Auto) [place] % (Auto) Eos % (Auto) Baso % (Auto) Neut # Lymph # [place] # Eos # Baso # PT INR APTT Sodium Potassium Chloride Carbon Dioxide Anion Gap BUN Creatinine Est GFR ( Amer) Est GFR (Non-Af Amer) POC Glucose (mg/dL) 111 H Random Glucose Calcium Total Bilirubin AST ALT Alkaline Phosphatase Total Creatine Kinase CK-MB (Mass) Troponin I NT-Pro-B Natriuret Pep Total Protein Albumin Globulin Albumin/Globulin Ratio Lipase Urine Color Urine Clarity Urine pH Ur Specific [place] Urine Protein Urine Glucose (UA) Urine Ketones Urine Blood Urine Nitrate Urine Bilirubin Urine Urobilinogen Ur Leukocyte Esterase Hepatitis A IgM Ab Hep Bs Antigen Hep B Core IgM Ab Hepatitis C Antibody Attending/Attestation - Attestation I have personally seen and examined this patient.: Yes I have fully participated in the care of the patient.: Yes I have reviewed all pertinent clinical information: Yes Notes (Text): 04/19/17 10:13 I have seen and examined patient with GI fellow. Agree with above documentation with the following additions. In brief, this is a 72 year old male with medical history of CAD/CABG, CHF s/p PPM, hyperlipidemia, cholecystectomy who presents to hospital with complaint of chest and abdominal pain. He describes a left sided chest discomfort that was associated with a dull, aching, 5/10 intensity RUQ pain that started yesterday. The pain appears to be worsened by food consumption, though patient cannot identify specific food type. He was recently hospitalized at [facility] and was diagnosed with recto-sigmoid colitis and has completed two week course of antibiotic therapy. He denies nausea, vomiting, fever/chills, weight loss, rectal bleeding , diarrhea, or change in bowel habits. He claims to have had a colonoscopy 1 year ago, though he is unsure regarding details/results/location. Review of vitals from today shows elevated BP. Family history: reviewed with patient, denies history of colon cancer CAD/CABG CHF s/p PPM Hyperlipidemia Abdominal pain, recent h/o colitis Transaminitis - abdominal US reviewed by me showing no gross hepatic abnormalities, normal caliber CBD - Diet as tolerated - Obtain viral hepatitis and autoimmune serology testing - Optimize cardiac status, possible transient elevation due to congestive hepatopathy - Obtain CT abdomen angiogram given underlying vascular comorbidities, transaminitis, and post prandial abdominal pain - Patient would benefit from elective outpatient colonoscopy following resolution of acute symptoms - Will continue to monitor patient clinical course
[2017-04-19 12:17] LABS: IRON 101 ug/dL (49-181)
[2017-04-19] MEDS: Enoxaparin 40 mg Syringe SC SCH (12:46)
[2017-04-19 13:34] LABS: BLOOD UREA NITROGEN 16 mg/dL (9-20); CALCIUM 8.7 mg/dl (8.6-10.4); CARBON DIOXIDE 22 mmol/L (22-30); CHLORIDE 100 mmol/L (98-107); GFR AFRICAN-AMERICAN > 60; GLUCOSE,RANDOM 236 mg/dL (75-110); POTASSIUM 3.4 mmol/L (3.6-5.2); SODIUM 133 mmol/L (132-148)
[2017-04-19] MEDS ORDERED: Iodixanol 320 mg/ml 150 ml Bottle IV ONE (14:26)
--- NOTE | 2017-04-19 14:27 | CON ---
CARDIOLOGY CONSULTATION REQUESTING PHYSICIAN: Pallavi Dumont MD HISTORY OF PRESENT ILLNESS: This is a 72-year-old gentleman with known history of chronic atrial fibrillation, CAD, CABG and heart failure with a severe LV systolic and diastolic dysfunction as per chart review, who was brought in with a chest pain and abdominal pain. The pain was on the left side along with abdominal pain, more so at the pacemaker site. This was not associated with exertion. He does have shortness of breath, which is chronic. No fever, no chills. The patient has been followed up closely by Dr. Jackson and Dr. Hansen, the completion supervisor. MEDICATIONS AT HOME: Include Lasix, Coreg 25 mg p.o. twice a day, and Norvasc along with metformin. PERSONAL HISTORY: Never smoked. No ETOH abuse. ALLERGIES: HE IS ALLERGIC TO MORPHINE. PAST MEDICAL HISTORY: History of arthritis; asthma; AFib; CAD; CHF, LVEF of about 15%; COPD; high cholesterol. PAST SURGICAL HISTORY: Includes cholecystectomy and previous CABG about 12 years ago at [facility], along at the same time he had a pacemaker implantation. REVIEW OF SYSTEMS: Generalized weakness is noted. He walks around slowly. Multiple joint pains, visual disturbances are none, but he has blurred vision. Hearing is somewhat intact. No cough, no hemoptysis. No exertional chest pain. Shortness of breath on exertion is noted. Occasional edema. No hematemesis, no melena. Abdominal pain which was started around 2 days ago along with the chest pain. Neurologically, no TIAs, No CVAs. Denies any urinary complaints. History of anxiety. FAMILY HISTORY: Negative for premature coronary artery disease. PHYSICAL EXAMINATION GENERAL: Shows elderly gentleman who is conscious, alert, well-oriented, in chronically sick-looking, but in no acute distress. He is 5 feet 8 inches and weighs 150 pounds. VITAL SIGNS: Blood pressure is 180/80, heart rate of 70, respiratory rate of 14, and afebrile. HEENT: Head is normocephalic. Eyes; no pallor, no icterus. Neck is supple. Absence of all teeth is noted in the mouth. LUNGS: Shows decreased air entry at the bases. HEART: PMI is not localized. S1 and S2 is distant, but regular. No definite gallops or murmurs. ABDOMEN: Soft. EXTREMITIES: No cyanosis, clubbing, or edema. Distal pulses are intact. NEUROLOGIC: Awake, alert, oriented x3. No focal sign. LABORATORY DATA: CBC and chem-7 are acceptable, ProBNP was elevated to 2000. ASSESSMENT: A 72-year-old gentleman with a history of what appears to be more of congestive heart failure, chronic left ventricular systolic dysfunction with mild worsening of the same. PLAN: Plan at this point is to change to IV Lasix 20 mg, add SHANIQUE inhibitor, Vasotec 5 mg p.o. twice a day. Continue with beta danitza and aspirin. The patient probably had recent echocardiogram done and is being followed by a completion supervisor outside, so we will not do any much of invasive work at this point or noninvasive. Conservative treatment at this point. ADDENDUM EKG has sinus rhythm with left bundle-branch block. Given the history of severe LV systolic dysfunction along with left bundle branch block, may be a candidate for EP evaluation if the patient has just a pacemaker without defibrillator backup. I will leave it up to primary completion supervisor, Dr. Hansen for further EP evaluation. I thank you kindly. We will follow as needed. Jaren Guaman MD
--- NOTE | 2017-04-19 16:50 | CT ---
CTA abdomen and pelvis Indication: Abdominal pain with CAD Comparison: CT abdomen and pelvis without IV contrast performed 03/30/17 Technique: Contrast dose: Total exam DLP: Axial computed tomographic angiogram images of the abdomen and pelvis were performed after bolus administration of nonionic intravenous contrast. Multiplanar, 3D (maximum intensity projection) reconstructions of the aorta were created in the coronal and sagittal planes by the electronic technologist. This CT exam was performed using 1 or more of the falling dose reduction techniques: Automated exposure control, adjustment of the MAA and/or kV according to patient size, and/or use of iterative reconstruction technique. Findings: Limited views of the inferior thorax demonstrates bibasilar atelectasis. No visible pleural effusion or pneumothorax. There is normal course and contour of the abdominal aorta and common iliac arteries. Scattered atherosclerotic calcifications within the abdominal aorta and branches. Plaque is noted within infra renal abdominal aorta. Small calcification is noted near the origins of the celiac artery, SMA, and left renal artery. The celiac artery origin is widely patent. The superior mesenteric artery origin is widely patent. The inferior mesenteric artery origin is patent. Bilateral renal arteries both appear widely patent. Cholecystectomy. The liver appears within normal limits of size and morphology. The pancreas, spleen, and adrenal glands appear unremarkable. The kidneys enhance symmetrically without evidence of hydronephrosis or obstructing renal calculi. 9 mm too small to characterize left renal hypodensity ; statistically likely a cyst. No bulky adenopathy identified. Visualized bowel loops appear within normal limits of caliber without evidence of obstruction. Extensive diverticulosis without CT evidence of acute diverticulitis. Circumferential thickening of the rectosigmoid colon can be seen in setting of chronic diverticulosis. Clinical correlation is recommended to exclude colitis (I.e. infectious, inflammatory, ischemic). The appendix appears normal. No inflammatory changes are seen in the right lower quadrant to suggest acute appendicitis. No definite free air. The urinary bladder appears unremarkable. Prostate calcifications. Bilateral fat containing inguinal hernias. Small fluid and calcifications noted within the left inguinal hernia sac. No significant pelvic free fluid is identified. Extensive multilevel degenerative changes. Impression: Scattered atherosclerotic calcifications within the abdominal aorta and branches. Plaque is noted within infra renal abdominal aorta. Small calcification is noted near the origins of the celiac artery, SMA, and left renal artery. The celiac artery origin, superior mesenteric artery origin, and inferior mesenteric artery origin appear patent. Bilateral renal arteries also both appear widely patent. Cholecystectomy. 9 mm too small to characterize left renal hypodensity ; statistically likely a cyst. Extensive diverticulosis without CT evidence of acute diverticulitis. Circumferential thickening of the rectosigmoid colon can be seen in setting of chronic diverticulosis. Clinical correlation is recommended to exclude colitis (I.e. infectious, inflammatory, ischemic). Bilateral fat containing inguinal hernias. Small fluid and calcifications noted within the left inguinal hernia sac.
[2017-04-19] MEDS ORDERED: Potassium Chloride 20 mEq ER Tab PO ONE (18:00)
--- NOTE | 2017-04-19 18:32 | CARD ---
APPROVED REPORT EKG Measurement Heart [id number] ME [id number] [id number] <Conclusion> Normal sinus rhythm Possible Left atrial enlargement Left bundle branch block Abnormal ECG
[2017-04-19] MEDS ORDERED: Tramadol 25 mg PO ONE (19:13)
--- NOTE | 2017-04-19 19:17 | CP.PCM.PN ---
Subjective - Date & Time of Evaluation Date of Evaluation: 04/19/17 Time of Evaluation: 11:00 - Subjective Subjective: clinically same Objective - Vital Signs/Intake and Output Vital Signs (last 24 hours): Temp Pulse Resp BP Pulse Ox 97.8 F 79 20 164/85 H 95 04/19/17 15:53 04/19/17 15:53 04/19/17 15:53 04/19/17 17:48 04/19/17 16:05 Intake and Output: 04/19/17 04/20/17 18:59 06:59 Intake Total 480 Output Total 500 Balance -20 - Medications Medications: Current Medications Acetaminophen (Tylenol 325mg Tab) 325 mg PO Q6 PRN PRN Reason: Pain, Mild (1-3) Last Admin: 04/19/17 06:59 Dose: 325 mg Alprazolam (Xanax) 0.5 mg PO BID COUNTS INCLUDE 234 BEDS AT THE [facility] Last Admin: 04/19/17 17:48 Dose: 0.5 mg Amlodipine Besylate (Norvasc) 2.5 mg PO DAILY COUNTS INCLUDE 234 BEDS AT THE [facility] Last Admin: 04/19/17 09:34 Dose: 2.5 mg Ascorbic Acid (Vitamin C 500 Mg Tab) 500 mg PO DAILY COUNTS INCLUDE 234 BEDS AT THE [facility] Last Admin: 04/19/17 09:40 Dose: 500 mg Aspirin (Aspirin) 325 mg PO DAILY COUNTS INCLUDE 234 BEDS AT THE [facility] Last Admin: 04/19/17 09:34 Dose: 325 mg Carvedilol (Coreg) 25 mg PO BID COUNTS INCLUDE 234 BEDS AT THE [facility] Last Admin: 04/19/17 17:48 Dose: 25 mg Clopidogrel Bisulfate (Plavix) 75 mg PO DAILY COUNTS INCLUDE 234 BEDS AT THE [facility] Last Admin: 04/19/17 09:34 Dose: 75 mg Dicyclomine HCl (Bentyl) 20 mg PO TID PRN PRN Reason: Abdominal cramping Last Admin: 04/19/17 02:54 Dose: 20 mg Enalapril Maleate (Vasotec) 5 mg PO BID COUNTS INCLUDE 234 BEDS AT THE [facility] Last Admin: 04/19/17 17:48 Dose: 5 mg Enoxaparin Sodium (Lovenox) 40 mg SC DAILY COUNTS INCLUDE 234 BEDS AT THE [facility] Last Admin: 04/19/17 12:46 Dose: 40 mg Famotidine (Pepcid) 40 mg PO HS COUNTS INCLUDE 234 BEDS AT THE [facility] Last Admin: 04/18/17 22:21 Dose: 40 mg Fluticasone Propionate (Flonase) 2 spr SHAYY DAILY PRN PRN Reason: Allergy symptoms Furosemide (Lasix) 20 mg IVP DAILY COUNTS INCLUDE 234 BEDS AT THE [facility] Home Med (Budesonide/Formoterol Fumarate [Symbicort 160-4.5 Mcg Inhaler]) 2 puff IH Q12H COUNTS INCLUDE 234 BEDS AT THE [facility] Loratadine (Claritin) 10 mg PO HS COUNTS INCLUDE 234 BEDS AT THE [facility] Last Admin: 04/18/17 22:21 Dose: 10 mg Metformin HCl (Glucophage) 500 mg PO BID COUNTS INCLUDE 234 BEDS AT THE [facility] Last Admin: 04/19/17 17:48 Dose: 500 mg Multivitamins (Hexavitamin) 1 tab PO DAILY COUNTS INCLUDE 234 BEDS AT THE [facility] Last Admin: 04/19/17 09:35 Dose: 1 tab Pneumococcal Polyvalent Vaccine (Pneumovax 23 Vaccine) 0.5 ml IM .ONCE ONE Stop: 04/20/17 10:01 Ranolazine (Ranexa) 500 mg PO DAILY COUNTS INCLUDE 234 BEDS AT THE [facility] Last Admin: 04/19/17 09:34 Dose: 500 mg Rosuvastatin Calcium (Crestor) 40 mg PO HS COUNTS INCLUDE 234 BEDS AT THE [facility] Last Admin: 04/18/17 22:21 Dose: 40 mg Tamsulosin HCl (Flomax) 0.4 mg PO DAILY COUNTS INCLUDE 234 BEDS AT THE [facility] Last Admin: 04/19/17 09:34 Dose: 0.4 mg Tiotropium [place] (Spiriva) 18 mcg INH RQ24 COUNTS INCLUDE 234 BEDS AT THE [facility] Last Admin: 04/19/17 08:32 Dose: Not Given - Labs Labs: 04/18/17 11:36 04/19/17 11:51 PT 12.2 SECONDS (9.7-12.2) 04/18/17 11:36 INR 1.1 04/18/17 11:36 APTT 32 SECONDS (21-34) 04/18/17 11:36 - Constitutional Appears: Well - Head Exam Head Exam: ATRAUMATIC, NORMAL INSPECTION, NORMOCEPHALIC - Eye Exam Eye Exam: EOMI, Normal appearance, PERRL Pupil Exam: NORMAL ACCOMODATION, PERRL - ENT Exam ENT Exam: Mucous Membranes Moist, Normal Exam - Neck Exam Neck Exam: Full ROM, Normal Inspection. absent: Lymphadenopathy - Respiratory Exam Respiratory Exam: Decreased Breath Sounds - Cardiovascular Exam Cardiovascular Exam: REGULAR RHYTHM, +S1, +S2 - GI/Abdominal Exam GI & Abdominal Exam: Soft, Diminished Bowel Sounds - Rectal Exam Rectal Exam: Deferred - Neurological Exam Neurological Exam: Alert, Oriented x3 Assessment and Plan (1) CHF (congestive heart failure) Status: Acute (2) Chest pain Status: Acute (3) Anxiety Status: Chronic (4) Abdominal pain, RLQ Status: Acute (5) Abdominal pain, RUQ Status: Acute (6) Abdominal pain, RUQ Status: Acute (7) Acute chest pain Status: Acute (8) Blood pressure instability Status: Acute (9) CHF exacerbation Status: Acute (10) COPD exacerbation Status: Acute (11) Chest pain Status: Acute (12) Chest pain, atypical Status: Acute (13) Diverticulosis Status: Acute (14) Headache Status: Acute (15) Labile hypertension Status: Acute (16) Migraine Status: Acute (17) UTI (urinary tract infection) Status: Acute (18) Weakness of both lower extremities Status: Acute (19) A-fib Status: Chronic (20) Abdominal pain, suprapubic Status: Chronic (21) COPD (chronic obstructive pulmonary disease) Status: Chronic (22) Chronic headache disorder Status: Chronic (23) DMII (diabetes mellitus, type 2) Status: Chronic (24) Dizziness Status: Chronic (25) Dyslipidemia Status: Chronic (26) Generalized weakness Status: Chronic (27) Head ache Status: Chronic (28) Hx of CABG Status: Chronic (29) Hypertension Status: Chronic (30) Left-sided chest wall pain Status: Chronic (31) Orthostatic tremor Status: Chronic (32) Pacemaker Status: Chronic (33) Unspecified abnormalities of gait and mobility Status: Chronic - Assessment and Plan (Free Text) Plan: asa plavix ranexa pepcid shelby other meds as ordered gi dr flowers on board dr misael weeks f/u labs
[2017-04-20] MEDS: Tiotropium 18 mcg Cap For Inhalation INH SCH (07:43)
[2017-04-20 08:29] LABS: INR 1.1
[2017-04-20 08:30] LABS: HEMATOCRIT 45.7 % (35.0-51.0); MEAN CELL VOLUME 87.2 fL (80.0-94.0); MEAN CORPUSCULAR HEMOGLOBIN 30.1 pg (27.0-31.0); MEAN CORPUSCULAR HGB CONC 34.5 g/dL (33.0-37.0); MEAN PLATELET VOLUME 8.4 fL (7.2-11.7); RED CELL DISTRIBUTION WIDTH 14.5 % (11.5-14.5); WHITE BLOOD COUNT 6.6 K/uL (4.8-10.8)
[2017-04-20 08:55] LABS: ALB/GLOB RATIO 1.5 (1.0-2.1); ALKALINE PHOSPHATASE 88 U/L (38-126); ALT/SGPT 89 U/L (21-72); AST/SGOT 52 U/L (17-59); BILIRUBIN,TOTAL 1.1 mg/dL (0.2-1.3); BLOOD UREA NITROGEN 22 mg/dL (9-20); CALCIUM 8.6 mg/dl (8.6-10.4); CARBON DIOXIDE 22 mmol/L (22-30); CHLORIDE 102 mmol/L (98-107); GFR AFRICAN-AMERICAN > 60; GLUCOSE,RANDOM 123 mg/dL (75-110); POTASSIUM 3.8 mmol/L (3.6-5.2); SODIUM 135 mmol/L (132-148); TOTAL PROTEIN 6.9 g/dL (6.3-8.3)
[2017-04-20] MEDS ORDERED: Pneumococcal 23-Valent Vaccine IM ONE (10:00)
[2017-04-20] MEDS: Ranolazine 500 mg Extended Release Tablets PO SCH (10:25)
[2017-04-20] MEDS: Multiple Vitamins Tab PO SCH (10:25)
[2017-04-20] MEDS: Enoxaparin 40 mg Syringe SC SCH (10:26)
[2017-04-20 11:25] LABS: ANA TITER 1:40
--- NOTE | 2017-04-20 12:38 | CP.PCM.PN ---
Subjective - Date & Time of Evaluation Date of Evaluation: 04/20/17 Time of Evaluation: 12:37 - Subjective Subjective: chest pains at pacemaker site. Objective - Vital Signs/Intake and Output Vital Signs (last 24 hours): Temp Pulse Resp BP Pulse Ox 97.9 F 102 H 20 131/87 97 04/20/17 07:41 04/20/17 07:41 04/20/17 07:41 04/20/17 10:26 04/20/17 07:41 - Medications Medications: Current Medications Acetaminophen (Tylenol 325mg Tab) 325 mg PO Q6 PRN PRN Reason: Pain, Mild (1-3) Last Admin: 04/20/17 10:23 Dose: 325 mg Alprazolam (Xanax) 0.5 mg PO BID [facility] Last Admin: 04/20/17 10:26 Dose: 0.5 mg Amlodipine Besylate (Norvasc) 2.5 mg PO DAILY [facility] Last Admin: 04/20/17 10:25 Dose: 2.5 mg Ascorbic Acid (Vitamin C 500 Mg Tab) 500 mg PO DAILY [facility] Last Admin: 04/20/17 10:25 Dose: 500 mg Aspirin (Aspirin) 325 mg PO DAILY [facility] Last Admin: 04/20/17 10:25 Dose: 325 mg Carvedilol (Coreg) 25 mg PO BID [facility] Last Admin: 04/20/17 10:24 Dose: 25 mg Clopidogrel Bisulfate (Plavix) 75 mg PO DAILY [facility] Last Admin: 04/20/17 10:25 Dose: 75 mg Dicyclomine HCl (Bentyl) 20 mg PO TID PRN PRN Reason: Abdominal cramping Last Admin: 04/19/17 02:54 Dose: 20 mg Enalapril Maleate (Vasotec) 5 mg PO BID [facility] Last Admin: 04/19/17 17:48 Dose: 5 mg Enoxaparin Sodium (Lovenox) 40 mg SC DAILY [facility] Last Admin: 04/20/17 10:26 Dose: 40 mg Famotidine (Pepcid) 40 mg PO HS [facility] Last Admin: 04/19/17 21:40 Dose: 40 mg Fluticasone Propionate (Flonase) 2 spr SHAYY DAILY PRN PRN Reason: Allergy symptoms Furosemide (Lasix) 20 mg IVP DAILY [facility] Last Admin: 04/20/17 10:26 Dose: 20 mg Home Med (Budesonide/Formoterol Fumarate [Symbicort 160-4.5 Mcg Inhaler]) 2 puff IH Q12H [facility] Loratadine (Claritin) 10 mg PO HS [facility] Last Admin: 04/19/17 21:40 Dose: 10 mg Metformin HCl (Glucophage) 500 mg PO BID [facility] Last Admin: 04/19/17 17:48 Dose: 500 mg Multivitamins (Hexavitamin) 1 tab PO DAILY [facility] Last Admin: 04/20/17 10:25 Dose: 1 tab Ranolazine (Ranexa) 500 mg PO DAILY [facility] Last Admin: 04/20/17 10:25 Dose: 500 mg Rosuvastatin Calcium (Crestor) 40 mg PO HS [facility] Last Admin: 04/19/17 21:40 Dose: 40 mg Tamsulosin HCl (Flomax) 0.4 mg PO DAILY [facility] Last Admin: 04/19/17 09:34 Dose: 0.4 mg Tiotropium [place] (Spiriva) 18 mcg INH RQ24 [facility] Last Admin: 04/20/17 07:43 Dose: Not Given - Labs Labs: 04/20/17 08:12 04/20/17 08:12 PT 13.0 SECONDS (9.7-12.2) H 04/20/17 08:12 INR 1.1 04/20/17 08:12 APTT 32 SECONDS (21-34) 04/18/17 11:36 - Constitutional Appears: No Acute Distress - Eye Exam Eye Exam: Normal appearance - Respiratory Exam Respiratory Exam: Decreased Breath Sounds - Cardiovascular Exam Cardiovascular Exam: REGULAR RHYTHM, Murmur - GI/Abdominal Exam GI & Abdominal Exam: Soft - Extremities Exam Extremities Exam: absent: Pedal Edema - Neurological Exam Neurological Exam: Alert, Oriented x3 Assessment and Plan - Assessment and Plan (Free Text) Assessment: chf,better.bp is better.labs noted.pains are non cardiac
--- NOTE | 2017-04-20 13:16 | CP.PCM.PN ---
<Darshana Alberts - Last Filed: 04/20/17 13:11> Subjective - Date & Time of Evaluation Date of Evaluation: 04/20/17 Time of Evaluation: 10:30 - Subjective Subjective: GI Fellow PGY4 Progress Note Pt seen and evaluated at bedside, pt still complaining of chest pain, headache and right sided abdominal pain. Pt reports loose stool today, he already went 4xBM, denies melena, hematochezia. Tolerating diet with no nausea or vomiting. ROS: A 12pt ROS was negative except as above. Objective - Vital Signs/Intake and Output Vital Signs (last 24 hours): Temp Pulse Resp BP Pulse Ox 97.9 F 102 H 20 131/87 97 04/20/17 07:41 04/20/17 07:41 04/20/17 07:41 04/20/17 10:26 04/20/17 07:41 - Medications Medications: Current Medications Acetaminophen (Tylenol 325mg Tab) 325 mg PO Q6 PRN PRN Reason: Pain, Mild (1-3) Last Admin: 04/20/17 10:23 Dose: 325 mg Alprazolam (Xanax) 0.5 mg PO BID [facility] Last Admin: 04/20/17 10:26 Dose: 0.5 mg Amlodipine Besylate (Norvasc) 2.5 mg PO DAILY [facility] Last Admin: 04/20/17 10:25 Dose: 2.5 mg Ascorbic Acid (Vitamin C 500 Mg Tab) 500 mg PO DAILY [facility] Last Admin: 04/20/17 10:25 Dose: 500 mg Aspirin (Aspirin) 325 mg PO DAILY [facility] Last Admin: 04/20/17 10:25 Dose: 325 mg Carvedilol (Coreg) 25 mg PO BID [facility] Last Admin: 04/20/17 10:24 Dose: 25 mg Clopidogrel Bisulfate (Plavix) 75 mg PO DAILY [facility] Last Admin: 04/20/17 10:25 Dose: 75 mg Dicyclomine HCl (Bentyl) 20 mg PO TID PRN PRN Reason: Abdominal cramping Last Admin: 04/19/17 02:54 Dose: 20 mg Enalapril Maleate (Vasotec) 5 mg PO BID [facility] Last Admin: 04/19/17 17:48 Dose: 5 mg Enoxaparin Sodium (Lovenox) 40 mg SC DAILY [facility] Last Admin: 04/20/17 10:26 Dose: 40 mg Famotidine (Pepcid) 40 mg PO HS [facility] Last Admin: 04/19/17 21:40 Dose: 40 mg Fluticasone Propionate (Flonase) 2 spr SHAYY DAILY PRN PRN Reason: Allergy symptoms Furosemide (Lasix) 20 mg IVP DAILY [facility] Last Admin: 04/20/17 10:26 Dose: 20 mg Home Med (Budesonide/Formoterol Fumarate [Symbicort 160-4.5 Mcg Inhaler]) 2 puff IH Q12H [facility] Loratadine (Claritin) 10 mg PO HS [facility] Last Admin: 04/19/17 21:40 Dose: 10 mg Metformin HCl (Glucophage) 500 mg PO BID [facility] Last Admin: 04/20/17 12:42 Dose: Not Given Multivitamins (Hexavitamin) 1 tab PO DAILY [facility] Last Admin: 04/20/17 10:25 Dose: 1 tab Ranolazine (Ranexa) 500 mg PO DAILY [facility] Last Admin: 04/20/17 10:25 Dose: 500 mg Rosuvastatin Calcium (Crestor) [address] [facility] Last Admin: 04/19/17 21:40 Dose: 40 mg Tamsulosin HCl (Flomax) 0.4 mg PO DAILY [facility] Last Admin: 04/19/17 09:34 Dose: 0.4 mg Tiotropium [place] (Spiriva) 18 mcg INH RQ24 [facility] Last Admin: 04/20/17 07:43 Dose: Not Given - Labs Labs: 04/20/17 08:12 04/20/17 08:12 PT 13.0 SECONDS (9.7-12.2) H 04/20/17 08:12 INR 1.1 04/20/17 08:12 APTT 32 SECONDS (21-34) 04/18/17 11:36 - Constitutional Appears: Non-toxic, No Acute Distress - Head Exam Head Exam: ATRAUMATIC, NORMAL INSPECTION, NORMOCEPHALIC - Eye Exam Eye Exam: EOMI, Normal appearance, PERRL Pupil Exam: NORMAL ACCOMODATION, PERRL - ENT Exam ENT Exam: Mucous Membranes Moist, Normal Exam - Neck Exam Neck Exam: Full ROM, Normal Inspection - Respiratory Exam Respiratory Exam: Clear to Ausculation Bilateral, NORMAL BREATHING PATTERN - Cardiovascular Exam Cardiovascular Exam: REGULAR RHYTHM - GI/Abdominal Exam GI & Abdominal Exam: Soft, Tenderness, Normal Bowel Sounds. absent: Distended, Guarding, Organomegaly - Rectal Exam Rectal Exam: Deferred - Extremities Exam Extremities Exam: Full ROM, Normal Inspection - Back Exam Back Exam: NORMAL INSPECTION - Neurological Exam Neurological Exam: Alert, Awake, Oriented x3 - Psychiatric Exam Psychiatric exam: Normal Affect, Normal Mood - Skin Skin Exam: Dry, Intact, Normal Color, Warm Assessment and Plan - Assessment and Plan (Free Text) Assessment: This is a 72yM presenting with complaints of right sided abdominal pain for one day associated with nausea. 1. Abdominal pain 2. Elevated LFTs-resolved 3. CHF EF 15-20% 4. Hx of Colitis left sided 03/31/17 5. Diarrhea Plan: -Continue supportive care with anti-emetics and pain control -LFTs normalized today likely elevated secondary to congestive hepatopathy from hx of CHF, optimize cardiac function, continue to trend LFTs, medication list reviewed, autoimmune workup and hepatitis panel negative -Continue regular diet -Abdominal US reviewed with cholecystectomy, no liver pathology -CT Abdominal Angio with patent Celiac, SM, FELISA -Pt with diarrhea today, will order stool studies -Recommend inpatient colonoscopy with rectosigmoid thickening and recent colitis and now diarrhea with abdominal pain, will discuss with cardiology, if cardiac clearance will start bowel prep tomorrow and plan for Tuesday -Will continue to follow closely <Kiko Rea - Last Filed: 04/20/17 13:32> Objective - Vital Signs/Intake and Output Vital Signs (last 24 hours): Temp Pulse Resp BP Pulse Ox 97.9 F 74 20 130/81 98 04/20/17 07:41 04/20/17 13:20 04/20/17 13:20 04/20/17 13:20 04/20/17 13:20 - Medications Medications: Current Medications Acetaminophen (Tylenol 325mg Tab) 325 mg PO Q6 PRN PRN Reason: Pain, Mild (1-3) Last Admin: 04/20/17 10:23 Dose: 325 mg Alprazolam (Xanax) 0.5 mg PO BID [facility] Last Admin: 04/20/17 10:26 Dose: 0.5 mg Amlodipine Besylate (Norvasc) 2.5 mg PO DAILY [facility] Last Admin: 04/20/17 10:25 Dose: 2.5 mg Ascorbic Acid (Vitamin C 500 Mg Tab) 500 mg PO DAILY [facility] Last Admin: 04/20/17 10:25 Dose: 500 mg Aspirin (Aspirin) 325 mg PO DAILY [facility] Last Admin: 04/20/17 10:25 Dose: 325 mg Carvedilol (Coreg) 25 mg PO BID [facility] Last Admin: 04/20/17 10:24 Dose: 25 mg Clopidogrel Bisulfate (Plavix) 75 mg PO DAILY [facility] Last Admin: 04/20/17 10:25 Dose: 75 mg Dicyclomine HCl (Bentyl) 20 mg PO TID PRN PRN Reason: Abdominal cramping Last Admin: 04/19/17 02:54 Dose: 20 mg Enalapril Maleate (Vasotec) 5 mg PO BID [facility] Last Admin: 04/20/17 13:20 Dose: 5 mg Enoxaparin Sodium (Lovenox) 40 mg SC DAILY [facility] Last Admin: 04/20/17 10:26 Dose: 40 mg Famotidine (Pepcid) 40 mg PO HS [facility] Last Admin: 04/19/17 21:40 Dose: 40 mg Fluticasone Propionate (Flonase) 2 spr SHAYY DAILY PRN PRN Reason: Allergy symptoms Furosemide (Lasix) 20 mg IVP DAILY [facility] Last Admin: 04/20/17 10:26 Dose: 20 mg Home Med (Budesonide/Formoterol Fumarate [Symbicort 160-4.5 Mcg Inhaler]) 2 puff IH Q12H [facility] Loratadine (Claritin) 10 mg PO HS [facility] Last Admin: 04/19/17 21:40 Dose: 10 mg Metformin HCl (Glucophage) 500 mg PO BID [facility] Last Admin: 04/20/17 12:42 Dose: Not Given Multivitamins (Hexavitamin) 1 tab PO DAILY [facility] Last Admin: 04/20/17 10:25 Dose: 1 tab Ranolazine (Ranexa) 500 mg PO DAILY [facility] Last Admin: 04/20/17 10:25 Dose: 500 mg Rosuvastatin Calcium (Crestor) 40 mg PO HS [facility] Last Admin: 04/19/17 21:40 Dose: 40 mg Tamsulosin HCl (Flomax) 0.4 mg PO DAILY [facility] Last Admin: 04/20/17 13:20 Dose: 0.4 mg Tiotropium [place] (Spiriva) 18 mcg INH RQ24 [facility] Last Admin: 04/20/17 07:43 Dose: Not Given - Labs Labs: 04/20/17 08:12 04/20/17 08:12 PT 13.0 SECONDS (9.7-12.2) H 04/20/17 08:12 INR 1.1 04/20/17 08:12 APTT 32 SECONDS (21-34) 04/18/17 11:36 Attending/Attestation - Attestation I have personally seen and examined this patient.: Yes I have fully participated in the care of the patient.: Yes I have reviewed all pertinent clinical information, including history, physical exam and plan: Yes Notes (Text): 04/20/17 13:29 72 year old male with h/o CHF admitted with chest pain, also c/o diarrhea and abdominal discomfort. 1. Elevated LFTs 2. Diarrhea 3. Abnormal CT scan of the colon 4. History of colitis Plan: -recommend stool studies to r/o infectious source of diarrhea -may have had ischemic colitis considering his history -CT angio was negative for occulive disease -no signs of infection at the moment -would recommend an elective colonoscopy when medically optimized -LFTs are downtrending, may be from congestive hepatopathy from CHF -viral workup negative, autoimmune workup mostly negative apart from mildly positive ayana
--- NOTE | 2017-04-20 14:33 | CP.PCM.PN ---
Subjective - Date & Time of Evaluation Date of Evaluation: 04/20/17 Time of Evaluation: 14:31 - Subjective Subjective: DISCUSSED OBS STATUS WITH DR. Cathy ROLLINS AND HIS PLAN FOR CARDIAC WORKUP. HE WILL ORDER LASIX IV DAILY. WILL CHANGE FROM OBS TO INPT. DR. Krish BRASHER MADE AWARE AND OK WITH PLAN. NO FURTHER ORDER. Objective - Vital Signs/Intake and Output Vital Signs (last 24 hours): Temp Pulse Resp BP Pulse Ox 97.9 F 74 20 130/81 98 04/20/17 07:41 04/20/17 13:20 04/20/17 13:20 04/20/17 13:20 04/20/17 13:20 - Medications Medications: Current Medications Acetaminophen (Tylenol 325mg Tab) 325 mg PO Q6 PRN PRN Reason: Pain, Mild (1-3) Last Admin: 04/20/17 10:23 Dose: 325 mg Alprazolam (Xanax) 0.5 mg PO BID [facility] Last Admin: 04/20/17 10:26 Dose: 0.5 mg Amlodipine Besylate (Norvasc) 2.5 mg PO DAILY [facility] Last Admin: 04/20/17 10:25 Dose: 2.5 mg Ascorbic Acid (Vitamin C 500 Mg Tab) 500 mg PO DAILY [facility] Last Admin: 04/20/17 10:25 Dose: 500 mg Aspirin (Aspirin) 325 mg PO DAILY [facility] Last Admin: 04/20/17 10:25 Dose: 325 mg Carvedilol (Coreg) 25 mg PO BID [facility] Last Admin: 04/20/17 10:24 Dose: 25 mg Clopidogrel Bisulfate (Plavix) 75 mg PO DAILY [facility] Last Admin: 04/20/17 10:25 Dose: 75 mg Dicyclomine HCl (Bentyl) 20 mg PO TID PRN PRN Reason: Abdominal cramping Last Admin: 04/19/17 02:54 Dose: 20 mg Enalapril Maleate (Vasotec) 5 mg PO BID [facility] Last Admin: 04/20/17 13:20 Dose: 5 mg Enoxaparin Sodium (Lovenox) 40 mg SC DAILY [facility] Last Admin: 04/20/17 10:26 Dose: 40 mg Famotidine (Pepcid) 40 mg PO HS [facility] Last Admin: 04/19/17 21:40 Dose: 40 mg Fluticasone Propionate (Flonase) 2 spr SHAYY DAILY PRN PRN Reason: Allergy symptoms Furosemide (Lasix) 20 mg IVP DAILY [facility] Last Admin: 04/20/17 10:26 Dose: 20 mg Home Med (Budesonide/Formoterol Fumarate [Symbicort 160-4.5 Mcg Inhaler]) 2 puff IH Q12H [facility] Loratadine (Claritin) 10 mg PO HS [facility] Last Admin: 04/19/17 21:40 Dose: 10 mg Metformin HCl (Glucophage) 500 mg PO BID [facility] Last Admin: 04/20/17 12:42 Dose: Not Given Multivitamins (Hexavitamin) 1 tab PO DAILY [facility] Last Admin: 04/20/17 10:25 Dose: 1 tab Ranolazine (Ranexa) 500 mg PO DAILY [facility] Last Admin: 04/20/17 10:25 Dose: 500 mg Rosuvastatin Calcium (Crestor) 40 mg PO HS [facility] Last Admin: 04/19/17 21:40 Dose: 40 mg Tamsulosin HCl (Flomax) 0.4 mg PO DAILY [facility] Last Admin: 04/20/17 13:20 Dose: 0.4 mg Tiotropium [place] (Spiriva) 18 mcg INH RQ24 [facility] Last Admin: 04/20/17 07:43 Dose: Not Given - Labs Labs: 04/20/17 08:12 04/20/17 08:12 PT 13.0 SECONDS (9.7-12.2) H 04/20/17 08:12 INR 1.1 04/20/17 08:12 APTT 32 SECONDS (21-34) 04/18/17 11:36
--- NOTE | 2017-04-20 20:19 | CP.PCM.PN ---
Subjective - Date & Time of Evaluation Date of Evaluation: 04/20/17 Time of Evaluation: 10:40 - Subjective Subjective: clinically same cardio dr misael weeks following on iv lasix gi dr flowers following Objective - Vital Signs/Intake and Output Vital Signs (last 24 hours): Temp Pulse Resp BP Pulse Ox 98.9 F 71 21 122/77 98 04/20/17 16:00 04/20/17 16:00 04/20/17 16:00 04/20/17 17:46 04/20/17 16:00 Intake and Output: 04/20/17 04/21/17 18:59 06:59 Intake Total 580 Output Total 100 Balance 480 - Medications Medications: Current Medications Acetaminophen (Tylenol 325mg Tab) 325 mg PO Q6 PRN PRN Reason: Pain, Mild (1-3) Last Admin: 04/20/17 19:56 Dose: 325 mg Alprazolam (Xanax) 0.5 mg PO BID [facility] Last Admin: 04/20/17 17:46 Dose: 0.5 mg Amlodipine Besylate (Norvasc) 2.5 mg PO DAILY [facility] Last Admin: 04/20/17 10:25 Dose: 2.5 mg Ascorbic Acid (Vitamin C 500 Mg Tab) 500 mg PO DAILY [facility] Last Admin: 04/20/17 10:25 Dose: 500 mg Aspirin (Aspirin) 325 mg PO DAILY [facility] Last Admin: 04/20/17 10:25 Dose: 325 mg Carvedilol (Coreg) 25 mg PO BID [facility] Last Admin: 04/20/17 17:46 Dose: 25 mg Clopidogrel Bisulfate (Plavix) 75 mg PO DAILY [facility] Last Admin: 04/20/17 10:25 Dose: 75 mg Dicyclomine HCl (Bentyl) 20 mg PO TID PRN PRN Reason: Abdominal cramping Last Admin: 04/19/17 02:54 Dose: 20 mg Enalapril Maleate (Vasotec) 5 mg PO BID [facility] Last Admin: 04/20/17 17:46 Dose: 5 mg Enoxaparin Sodium (Lovenox) 40 mg SC DAILY [facility] Last Admin: 04/20/17 10:26 Dose: 40 mg Famotidine (Pepcid) 40 mg PO HS [facility] Last Admin: 04/19/17 21:40 Dose: 40 mg Fluticasone Propionate (Flonase) 2 spr SHAYY DAILY PRN PRN Reason: Allergy symptoms Furosemide (Lasix) 20 mg IVP DAILY [facility] Last Admin: 04/20/17 10:26 Dose: 20 mg Loratadine (Claritin) 10 mg PO HS [facility] Last Admin: 04/19/17 21:40 Dose: 10 mg Metformin HCl (Glucophage) 500 mg PO BID [facility] Last Admin: 04/20/17 12:42 Dose: Not Given Multivitamins (Hexavitamin) 1 tab PO DAILY [facility] Last Admin: 04/20/17 10:25 Dose: 1 tab Ranolazine (Ranexa) 500 mg PO DAILY [facility] Last Admin: 04/20/17 10:25 Dose: 500 mg Rosuvastatin Calcium (Crestor) 40 mg PO HS [facility] Last Admin: 04/19/17 21:40 Dose: 40 mg Fluticasone/Salmeterol (Advair Diskus 250/50) 1 puff INH RQ12 [facility] Tamsulosin HCl (Flomax) 0.4 mg PO DAILY [facility] Last Admin: 04/20/17 13:20 Dose: 0.4 mg Tiotropium [place] (Spiriva) 18 mcg INH RQ24 [facility] Last Admin: 04/20/17 07:43 Dose: Not Given - Labs Labs: 04/20/17 08:12 04/20/17 08:12 PT 13.0 SECONDS (9.7-12.2) H 04/20/17 08:12 INR 1.1 04/20/17 08:12 APTT 32 SECONDS (21-34) 04/18/17 11:36 - Constitutional Appears: Well - Head Exam Head Exam: ATRAUMATIC, NORMAL INSPECTION, NORMOCEPHALIC - Eye Exam Eye Exam: EOMI, Normal appearance, PERRL Pupil Exam: NORMAL ACCOMODATION, PERRL - ENT Exam ENT Exam: Mucous Membranes Moist, Normal Exam - Neck Exam Neck Exam: Full ROM, Normal Inspection. absent: Lymphadenopathy - Respiratory Exam Respiratory Exam: Decreased Breath Sounds - Cardiovascular Exam Cardiovascular Exam: REGULAR RHYTHM, +S1, +S2 - GI/Abdominal Exam GI & Abdominal Exam: Diminished Bowel Sounds - Rectal Exam Rectal Exam: Deferred - Neurological Exam Neurological Exam: Alert, Oriented x3 Assessment and Plan (1) CHF (congestive heart failure) Status: Acute (2) Chest pain Status: Acute (3) Anxiety Status: Chronic (4) Abdominal pain, RLQ Status: Acute (5) Abdominal pain, RUQ Status: Acute (6) Abdominal pain, RUQ Status: Acute (7) Acute chest pain Status: Acute (8) Blood pressure instability Status: Acute (9) CHF exacerbation Status: Acute (10) COPD exacerbation Status: Acute (11) Chest pain Status: Acute (12) Chest pain, atypical Status: Acute (13) Diverticulosis Status: Acute (14) Headache Status: Acute (15) Labile hypertension Status: Acute (16) Migraine Status: Acute (17) UTI (urinary tract infection) Status: Acute (18) Weakness of both lower extremities Status: Acute (19) A-fib Status: Chronic (20) Abdominal pain, suprapubic Status: Chronic (21) COPD (chronic obstructive pulmonary disease) Status: Chronic (22) Chronic headache disorder Status: Chronic (23) DMII (diabetes mellitus, type 2) Status: Chronic (24) Dizziness Status: Chronic (25) Dyslipidemia Status: Chronic (26) Generalized weakness Status: Chronic (27) Head ache Status: Chronic (28) Hx of CABG Status: Chronic (29) Hypertension Status: Chronic (30) Left-sided chest wall pain Status: Chronic (31) Orthostatic tremor Status: Chronic (32) Pacemaker Status: Chronic (33) Unspecified abnormalities of gait and mobility Status: Chronic - Assessment and Plan (Free Text) Plan: asa plavix iv lasix as per cardio pepcid ranexa f/u with gi [facility] other meds as ordered heart healthy diet f/u labs
--- NOTE | 2017-04-21 07:24 | CP.PCM.PN ---
<Darshana Alberts - Last Filed: 04/21/17 07:25> Subjective - Date & Time of Evaluation Date of Evaluation: 04/21/17 Time of Evaluation: 07:00 - Subjective Subjective: GI Fellow PGY4 Progress Note Pt seen and evaluated at bedside, pt still complaining of chest pain, headache and right sided abdominal pain. Pt reports one loose stool today denies melena, hematochezia. Tolerating diet with no nausea or vomiting. ROS: A 12pt ROS was negative except as above. Objective - Vital Signs/Intake and Output Vital Signs (last 24 hours): Temp Pulse Resp BP Pulse Ox 97.9 F 60 20 102/60 98 04/21/17 00:00 04/21/17 00:00 04/21/17 00:00 04/21/17 00:00 04/21/17 00:00 Intake and Output: 04/21/17 04/21/17 06:59 18:59 Intake Total 500 Output Total 200 Balance 300 - Medications Medications: Current Medications Acetaminophen (Tylenol 325mg Tab) 325 mg PO Q6 PRN PRN Reason: Pain, Mild (1-3) Last Admin: 04/21/17 05:39 Dose: 325 mg Alprazolam (Xanax) 0.5 mg PO BID [facility] Last Admin: 04/20/17 17:46 Dose: 0.5 mg Amlodipine Besylate (Norvasc) 2.5 mg PO DAILY [facility] Last Admin: 04/20/17 10:25 Dose: 2.5 mg Ascorbic Acid (Vitamin C 500 Mg Tab) 500 mg PO DAILY [facility] Last Admin: 04/20/17 10:25 Dose: 500 mg Aspirin (Aspirin) 325 mg PO DAILY [facility] Last Admin: 04/20/17 10:25 Dose: 325 mg Carvedilol (Coreg) 25 mg PO BID [facility] Last Admin: 04/20/17 17:46 Dose: 25 mg Clopidogrel Bisulfate (Plavix) 75 mg PO DAILY [facility] Last Admin: 04/20/17 10:25 Dose: 75 mg Dicyclomine HCl (Bentyl) 20 mg PO TID PRN PRN Reason: Abdominal cramping Last Admin: 04/19/17 02:54 Dose: 20 mg Enalapril Maleate (Vasotec) 5 mg PO BID [facility] Last Admin: 04/20/17 17:46 Dose: 5 mg Enoxaparin Sodium (Lovenox) 40 mg SC DAILY [facility] Last Admin: 04/20/17 10:26 Dose: 40 mg Famotidine (Pepcid) 40 mg PO HS [facility] Last Admin: 04/20/17 21:19 Dose: 40 mg Fluticasone Propionate (Flonase) 2 spr SHAYY DAILY PRN PRN Reason: Allergy symptoms Furosemide (Lasix) 20 mg IVP DAILY [facility] Last Admin: 04/20/17 10:26 Dose: 20 mg Loratadine (Claritin) 10 mg PO HS [facility] Last Admin: 04/20/17 21:20 Dose: 10 mg Metformin HCl (Glucophage) 500 mg PO BID [facility] Last Admin: 04/20/17 12:42 Dose: Not Given Multivitamins (Hexavitamin) 1 tab PO DAILY [facility] Last Admin: 04/20/17 10:25 Dose: 1 tab Ranolazine (Ranexa) 500 mg PO DAILY [facility] Last Admin: 04/20/17 10:25 Dose: 500 mg Rosuvastatin Calcium (Crestor) 40 mg PO HS [facility] Last Admin: 04/20/17 21:20 Dose: 40 mg Fluticasone/Salmeterol (Advair Diskus 250/50) 1 puff INH RQ12 [facility] Tamsulosin HCl (Flomax) 0.4 mg PO DAILY [facility] Last Admin: 04/20/17 13:20 Dose: 0.4 mg Tiotropium [place] (Spiriva) 18 mcg INH RQ24 [facility] Last Admin: 04/20/17 07:43 Dose: Not Given - Labs Labs: 04/20/17 08:12 04/20/17 08:12 PT 13.0 SECONDS (9.7-12.2) H 04/20/17 08:12 INR 1.1 04/20/17 08:12 APTT 32 SECONDS (21-34) 04/18/17 11:36 - Constitutional Appears: Non-toxic, No Acute Distress - Head Exam Head Exam: ATRAUMATIC, NORMAL INSPECTION, NORMOCEPHALIC - Eye Exam Eye Exam: EOMI, Normal appearance, PERRL Pupil Exam: NORMAL ACCOMODATION, PERRL - ENT Exam ENT Exam: Mucous Membranes Moist, Normal Exam - Neck Exam Neck Exam: Full ROM, Normal Inspection - Respiratory Exam Respiratory Exam: Clear to Ausculation Bilateral, NORMAL BREATHING PATTERN - Cardiovascular Exam Cardiovascular Exam: REGULAR RHYTHM - GI/Abdominal Exam GI & Abdominal Exam: Soft, Normal Bowel Sounds. absent: Distended, Tenderness, Organomegaly - Rectal Exam Rectal Exam: Deferred - Extremities Exam Extremities Exam: Full ROM, Normal Inspection. absent: Pedal Edema - Back Exam Back Exam: NORMAL INSPECTION - Neurological Exam Neurological Exam: Alert, Awake, Oriented x3 - Psychiatric Exam Psychiatric exam: Normal Affect, Normal Mood - Skin Skin Exam: Dry, Intact, Normal Color, Warm Assessment and Plan - Assessment and Plan (Free Text) Assessment: This is a 72yM presenting with complaints of right sided abdominal pain for one day associated with nausea. 1. Abdominal pain 2. Elevated LFTs-resolved 3. CHF EF 15-20% 4. Hx of Colitis left sided 03/31/17 5. Diarrhea Plan: -Continue supportive care with anti-emetics and pain control -LFTs down trending likely elevated secondary to congestive hepatopathy from hx of CHF, optimize cardiac function, continue to trend LFTs, medication list reviewed, autoimmune workup and hepatitis panel negative -Continue regular diet -Abdominal US reviewed with cholecystectomy, no liver pathology -CT Abdominal Angio with patent Celiac, SM, FELISA -Pt with diarrhea, stool studies pending -Recommend outpt colonoscopy with rectosigmoid thickening and recent colitis, discussed with cardiology, pt needs cardiac optimization prior to procedure -Please call with any questions or concerns <Dirk Joshua - Last Filed: 04/21/17 15:02> Objective - Vital Signs/Intake and Output Vital Signs (last 24 hours): Temp Pulse Resp BP Pulse Ox 97.5 F L 78 21 146/83 98 04/21/17 12:49 04/21/17 12:49 04/21/17 12:49 04/21/17 14:30 04/21/17 12:49 Intake and Output: 04/21/17 04/21/17 06:59 18:59 Intake Total 500 960 Output Total 200 Balance 300 960 - Medications Medications: Current Medications Acetaminophen (Tylenol 325mg Tab) 325 mg PO Q6 PRN PRN Reason: Pain, Mild (1-3) Last Admin: 04/21/17 11:31 Dose: 325 mg Alprazolam (Xanax) 0.5 mg PO BID [facility] Last Admin: 04/21/17 09:19 Dose: 0.5 mg Amlodipine Besylate (Norvasc) 2.5 mg PO DAILY [facility] Last Admin: 04/21/17 10:25 Dose: 2.5 mg Ascorbic Acid (Vitamin C 500 Mg Tab) 500 mg PO DAILY [facility] Last Admin: 04/21/17 10:27 Dose: 500 mg Aspirin (Aspirin) 325 mg PO DAILY [facility] Last Admin: 04/21/17 10:25 Dose: 325 mg Carvedilol (Coreg) 25 mg PO BID [facility] Last Admin: 04/21/17 10:25 Dose: 25 mg Clopidogrel Bisulfate (Plavix) 75 mg PO DAILY [facility] Last Admin: 04/21/17 10:25 Dose: 75 mg Dicyclomine HCl (Bentyl) 20 mg PO TID PRN PRN Reason: Abdominal cramping Last Admin: 04/19/17 02:54 Dose: 20 mg Enalapril Maleate (Vasotec) 5 mg PO BID [facility] Last Admin: 04/21/17 10:26 Dose: 5 mg Enoxaparin Sodium (Lovenox) 40 mg SC DAILY [facility] Last Admin: 04/21/17 10:26 Dose: 40 mg Famotidine (Pepcid) 40 mg PO HS [facility] Last Admin: 04/20/17 21:19 Dose: 40 mg Fluticasone Propionate (Flonase) 2 spr SHAYY DAILY PRN PRN Reason: Allergy symptoms Furosemide (Lasix) 20 mg IVP DAILY [facility] Last Admin: 04/21/17 14:30 Dose: 20 mg Loratadine (Claritin) 10 mg PO HS [facility] Last Admin: 04/20/17 21:20 Dose: 10 mg Metformin HCl (Glucophage) 500 mg PO BID [facility] Last Admin: 04/20/17 12:42 Dose: Not Given Multivitamins (Hexavitamin) 1 tab PO DAILY [facility] Last Admin: 04/21/17 10:25 Dose: 1 tab Ranolazine (Ranexa) 500 mg PO DAILY [facility] Last Admin: 04/21/17 10:25 Dose: 500 mg Rosuvastatin Calcium (Crestor) 40 mg PO HS [facility] Last Admin: 04/20/17 21:20 Dose: 40 mg Fluticasone/Salmeterol (Advair Diskus 250/50) 1 puff INH RQ12 [facility] Tamsulosin HCl (Flomax) 0.4 mg PO DAILY [facility] Last Admin: 04/21/17 10:25 Dose: 0.4 mg Tiotropium [place] (Spiriva) 18 mcg INH RQ24 [facility] Last Admin: 04/21/17 14:24 Dose: Not Given - Labs Labs: 04/21/17 13:26 04/21/17 13:26 PT 13.0 SECONDS (9.7-12.2) H 04/20/17 08:12 INR 1.1 04/20/17 08:12 APTT 32 SECONDS (21-34) 04/18/17 11:36 Attending/Attestation - Attestation I have personally seen and examined this patient.: Yes I have fully participated in the care of the patient.: Yes I have reviewed all pertinent clinical information, including history, physical exam and plan: Yes Notes (Text): 04/21/17 14:57 I have seen and examined patient with GI fellow. No acute events overnight. He continues to endorse vague RLQ abdominal pain, L sided chest pain, and headaches. He had one soft bowel movement earlier this morning. He otherwise denies nausea, vomiting, fever/chills. Tolerating PO diet without difficulty. Review of vitals from today are normal. CAD/CABG s/p PPM CHF Abdominal pain, prior history of colitis Transaminitis - Diet as tolerated - LFTs stable, continue to monitor. TOLU +, suggest continued monitoring with outpatient follow up. - Follow up stool studies - Follow up cardiology recommendations - Patient would benefit from elective outpatient colonoscopy given prior history of colitis and ongoing right sided abdominal pain. This should be performed following cardiac optimization. From GI standpoint ok to discharge patient home with subsequent outpatient follow up, office contact information given to patient. Please reconsult as necessary, thank you.
[2017-04-21] MEDS ORDERED: Fluticasone-Salmeterol 250-50mcg Diskus INH SCH (08:00)
[2017-04-21] MEDS: Multiple Vitamins Tab PO SCH (10:25)
[2017-04-21] MEDS: Ranolazine 500 mg Extended Release Tablets PO SCH (10:25)
[2017-04-21] MEDS: Enoxaparin 40 mg Syringe SC SCH (10:26)
[2017-04-21 11:35] LABS: FECAL LEUKOCYTES NEGATIVE (NEGATIVE)
--- NOTE | 2017-04-21 13:34 | CP.PCM.PN ---
Subjective - Date & Time of Evaluation Date of Evaluation: 04/21/17 Time of Evaluation: 13:31 - Subjective Subjective: chest pains,more with local tenderness.headaches, Objective - Vital Signs/Intake and Output Vital Signs (last 24 hours): Temp Pulse Resp BP Pulse Ox 97.5 F L 78 21 146/83 98 04/21/17 12:49 04/21/17 12:49 04/21/17 12:49 04/21/17 12:49 04/21/17 12:49 Intake and Output: 04/21/17 04/21/17 06:59 18:59 Intake Total 500 Output Total 200 Balance 300 - Medications Medications: Current Medications Acetaminophen (Tylenol 325mg Tab) 325 mg PO Q6 PRN PRN Reason: Pain, Mild (1-3) Last Admin: 04/21/17 11:31 Dose: 325 mg Alprazolam (Xanax) 0.5 mg PO BID [facility] Last Admin: 04/21/17 09:19 Dose: 0.5 mg Amlodipine Besylate (Norvasc) 2.5 mg PO DAILY [facility] Last Admin: 04/21/17 10:25 Dose: 2.5 mg Ascorbic Acid (Vitamin C 500 Mg Tab) 500 mg PO DAILY [facility] Last Admin: 04/21/17 10:27 Dose: 500 mg Aspirin (Aspirin) 325 mg PO DAILY [facility] Last Admin: 04/21/17 10:25 Dose: 325 mg Carvedilol (Coreg) 25 mg PO BID [facility] Last Admin: 04/21/17 10:25 Dose: 25 mg Clopidogrel Bisulfate (Plavix) 75 mg PO DAILY [facility] Last Admin: 04/21/17 10:25 Dose: 75 mg Dicyclomine HCl (Bentyl) 20 mg PO TID PRN PRN Reason: Abdominal cramping Last Admin: 04/19/17 02:54 Dose: 20 mg Enalapril Maleate (Vasotec) 5 mg PO BID [facility] Last Admin: 04/21/17 10:26 Dose: 5 mg Enoxaparin Sodium (Lovenox) 40 mg SC DAILY [facility] Last Admin: 04/21/17 10:26 Dose: 40 mg Famotidine (Pepcid) 40 mg PO HS [facility] Last Admin: 04/20/17 21:19 Dose: 40 mg Fluticasone Propionate (Flonase) 2 spr SHAYY DAILY PRN PRN Reason: Allergy symptoms Furosemide (Lasix) 20 mg IVP DAILY [facility] Last Admin: 04/20/17 10:26 Dose: 20 mg Loratadine (Claritin) 10 mg PO HS [facility] Last Admin: 04/20/17 21:20 Dose: 10 mg Metformin HCl (Glucophage) 500 mg PO BID [facility] Last Admin: 04/20/17 12:42 Dose: Not Given Multivitamins (Hexavitamin) 1 tab PO DAILY [facility] Last Admin: 04/21/17 10:25 Dose: 1 tab Ranolazine (Ranexa) 500 mg PO DAILY [facility] Last Admin: 04/21/17 10:25 Dose: 500 mg Rosuvastatin Calcium (Crestor) 40 mg PO HS [facility] Last Admin: 04/20/17 21:20 Dose: 40 mg Fluticasone/Salmeterol (Advair Diskus 250/50) 1 puff INH RQ12 [facility] Tamsulosin HCl (Flomax) 0.4 mg PO DAILY [facility] Last Admin: 04/21/17 10:25 Dose: 0.4 mg Tiotropium [place] (Spiriva) 18 mcg INH RQ24 [facility] Last Admin: 04/20/17 07:43 Dose: Not Given - Labs Labs: 04/20/17 08:12 04/20/17 08:12 PT 13.0 SECONDS (9.7-12.2) H 04/20/17 08:12 INR 1.1 04/20/17 08:12 APTT 32 SECONDS (21-34) 04/18/17 11:36 - Constitutional Appears: No Acute Distress, Chronically Ill - Head Exam Head Exam: NORMOCEPHALIC - Respiratory Exam Respiratory Exam: Clear to Ausculation Bilateral - Cardiovascular Exam Cardiovascular Exam: REGULAR RHYTHM, Murmur - GI/Abdominal Exam GI & Abdominal Exam: Soft - Extremities Exam Extremities Exam: absent: Pedal Edema - Neurological Exam Neurological Exam: Alert, Oriented x3 Assessment and Plan - Assessment and Plan (Free Text) Assessment: chf,stable.vital,labs are ok.stable cardiac quiles.ep eval if needed after f/y dr medina.
[2017-04-21 13:36] LABS: BASO % 0.5 % (0.0-2.0); EOS # 0.2 K/uL (0.0-0.7); EOS % 2.1 % (0.0-4.0); HEMATOCRIT 45.4 % (35.0-51.0); LYMPH % 28.2 % (20.0-40.0); MEAN CELL VOLUME 87.5 fL (80.0-94.0); MEAN CORPUSCULAR HEMOGLOBIN 29.7 pg (27.0-31.0); MEAN CORPUSCULAR HGB CONC 33.9 g/dL (33.0-37.0); MEAN PLATELET VOLUME 8.3 fL (7.2-11.7); MONO # 0.8 K/uL (0.0-0.8); MONO % 10.6 % (0.0-10.0); NRBC % 0.1 % (0.0-2.0); RED CELL DISTRIBUTION WIDTH 14.2 % (11.5-14.5); WHITE BLOOD COUNT 7.2 K/uL (4.8-10.8)
[2017-04-21 13:52] LABS: ALKALINE PHOSPHATASE 73 U/L (38-126); ALT/SGPT 88 U/L (21-72); AST/SGOT 47 U/L (17-59); BILIRUBIN,TOTAL 0.7 mg/dL (0.2-1.3); BLOOD UREA NITROGEN 31 mg/dL (9-20); CALCIUM 8.7 mg/dl (8.6-10.4); CARBON DIOXIDE 24 mmol/L (22-30); CHLORIDE 100 mmol/L (98-107); GFR AFRICAN-AMERICAN > 60; GLUCOSE,RANDOM 129 mg/dL (75-110); POTASSIUM 3.9 mmol/L (3.6-5.2); SODIUM 136 mmol/L (132-148); TOTAL PROTEIN 8.3 g/dL (6.3-8.3)
[2017-04-21] MEDS: Tiotropium 18 mcg Cap For Inhalation INH SCH (14:24)
--- NOTE | 2017-04-21 16:05 | CP.PCM.PN ---
Subjective - Date & Time of Evaluation Date of Evaluation: 04/21/17 Time of Evaluation: 16:05 - Subjective Subjective: DISCUSSED D/C PLAN WITH DR. ROLLINS AND PT CLEARED CARDIAC OLSEN FOR D/C HOME WITH PO LASIX. GI ALSO CLEARED PT W OP F/U. UPON EXAM WITH DR. BRASHER PT C/O RUQ PAIN AND REFUSING DC. TO ORDER ABD US PER DR. BRASHER BUT IT WAS ALREADY DONE A FEW DAYS AGO. NO NAUSEA, VOMITING. DR. BRASHER AWARE OF U/S RESULTS. PT TO BE D /C HOME TOMORROW MORNING PER DR BRASHER. Objective - Vital Signs/Intake and Output Vital Signs (last 24 hours): Temp Pulse Resp BP Pulse Ox 97.5 F L 78 21 146/83 98 04/21/17 12:49 04/21/17 12:49 04/21/17 12:49 04/21/17 14:30 04/21/17 12:49 Intake and Output: 04/21/17 04/21/17 06:59 18:59 Intake Total 500 960 Output Total 200 Balance 300 960 - Medications Medications: Current Medications Acetaminophen (Tylenol 325mg Tab) 325 mg PO Q6 PRN PRN Reason: Pain, Mild (1-3) Last Admin: 04/21/17 11:31 Dose: 325 mg Alprazolam (Xanax) 0.5 mg PO BID [facility] Last Admin: 04/21/17 09:19 Dose: 0.5 mg Amlodipine Besylate (Norvasc) 2.5 mg PO DAILY [facility] Last Admin: 04/21/17 10:25 Dose: 2.5 mg Ascorbic Acid (Vitamin C 500 Mg Tab) 500 mg PO DAILY [facility] Last Admin: 04/21/17 10:27 Dose: 500 mg Aspirin (Aspirin) 325 mg PO DAILY [facility] Last Admin: 04/21/17 10:25 Dose: 325 mg Carvedilol (Coreg) 25 mg PO BID [facility] Last Admin: 04/21/17 10:25 Dose: 25 mg Clopidogrel Bisulfate (Plavix) 75 mg PO DAILY [facility] Last Admin: 04/21/17 10:25 Dose: 75 mg Dicyclomine HCl (Bentyl) 20 mg PO TID PRN PRN Reason: Abdominal cramping Last Admin: 04/19/17 02:54 Dose: 20 mg Enalapril Maleate (Vasotec) 5 mg PO BID [facility] Last Admin: 04/21/17 10:26 Dose: 5 mg Enoxaparin Sodium (Lovenox) 40 mg SC DAILY [facility] Last Admin: 04/21/17 10:26 Dose: 40 mg Famotidine (Pepcid) 40 mg PO HS [facility] Last Admin: 04/20/17 21:19 Dose: 40 mg Fluticasone Propionate (Flonase) 2 spr SHAYY DAILY PRN PRN Reason: Allergy symptoms Furosemide (Lasix) 20 mg IVP DAILY [facility] Last Admin: 04/21/17 14:30 Dose: 20 mg Loratadine (Claritin) 10 mg PO HS [facility] Last Admin: 04/20/17 21:20 Dose: 10 mg Metformin HCl (Glucophage) 500 mg PO BID [facility] Last Admin: 04/20/17 12:42 Dose: Not Given Multivitamins (Hexavitamin) 1 tab PO DAILY [facility] Last Admin: 04/21/17 10:25 Dose: 1 tab Ranolazine (Ranexa) 500 mg PO DAILY [facility] Last Admin: 04/21/17 10:25 Dose: 500 mg Rosuvastatin Calcium (Crestor) 40 mg PO HS [facility] Last Admin: 04/20/17 21:20 Dose: 40 mg Fluticasone/Salmeterol (Advair Diskus 250/50) 1 puff INH RQ12 [facility] Tamsulosin HCl (Flomax) 0.4 mg PO DAILY [facility] Last Admin: 04/21/17 10:25 Dose: 0.4 mg Tiotropium Olin (Spiriva) 18 mcg INH RQ24 [facility] Last Admin: 04/21/17 14:24 Dose: Not Given - Labs Labs: 04/21/17 13:26 04/21/17 13:26 PT 13.0 SECONDS (9.7-12.2) H 04/20/17 08:12 INR 1.1 04/20/17 08:12 APTT 32 SECONDS (21-34) 04/18/17 11:36
--- NOTE | 2017-04-21 16:50 | CP.PCM.PN ---
Subjective - Date & Time of Evaluation Date of Evaluation: 04/21/17 Time of Evaluation: 09:00 - Subjective Subjective: clinically same discharge planning to home Objective - Vital Signs/Intake and Output Vital Signs (last 24 hours): Temp Pulse Resp BP Pulse Ox 97.6 F 76 20 112/73 99 04/21/17 16:32 04/21/17 16:32 04/21/17 16:32 04/21/17 16:32 04/21/17 16:32 Intake and Output: 04/21/17 04/21/17 06:59 18:59 Intake Total 500 960 Output Total 200 Balance 300 960 - Medications Medications: Current Medications Acetaminophen (Tylenol 325mg Tab) 325 mg PO Q6 PRN PRN Reason: Pain, Mild (1-3) Last Admin: 04/21/17 11:31 Dose: 325 mg Alprazolam (Xanax) 0.5 mg PO BID [facility] Last Admin: 04/21/17 09:19 Dose: 0.5 mg Amlodipine Besylate (Norvasc) 2.5 mg PO DAILY [facility] Last Admin: 04/21/17 10:25 Dose: 2.5 mg Ascorbic Acid (Vitamin C 500 Mg Tab) 500 mg PO DAILY [facility] Last Admin: 04/21/17 10:27 Dose: 500 mg Aspirin (Aspirin) 325 mg PO DAILY [facility] Last Admin: 04/21/17 10:25 Dose: 325 mg Carvedilol (Coreg) 25 mg PO BID [facility] Last Admin: 04/21/17 10:25 Dose: 25 mg Clopidogrel Bisulfate (Plavix) 75 mg PO DAILY [facility] Last Admin: 04/21/17 10:25 Dose: 75 mg Dicyclomine HCl (Bentyl) 20 mg PO TID PRN PRN Reason: Abdominal cramping Last Admin: 04/19/17 02:54 Dose: 20 mg Enalapril Maleate (Vasotec) 5 mg PO BID [facility] Last Admin: 04/21/17 10:26 Dose: 5 mg Enoxaparin Sodium (Lovenox) 40 mg SC DAILY [facility] Last Admin: 04/21/17 10:26 Dose: 40 mg Famotidine (Pepcid) 40 mg PO HS [facility] Last Admin: 04/20/17 21:19 Dose: 40 mg Fluticasone Propionate (Flonase) 2 spr SHAYY DAILY PRN PRN Reason: Allergy symptoms Furosemide (Lasix) 20 mg IVP DAILY [facility] Last Admin: 04/21/17 14:30 Dose: 20 mg Loratadine (Claritin) 10 mg PO HS [facility] Last Admin: 04/20/17 21:20 Dose: 10 mg Metformin HCl (Glucophage) 500 mg PO BID [facility] Last Admin: 04/20/17 12:42 Dose: Not Given Multivitamins (Hexavitamin) 1 tab PO DAILY [facility] Last Admin: 04/21/17 10:25 Dose: 1 tab Ranolazine (Ranexa) 500 mg PO DAILY [facility] Last Admin: 04/21/17 10:25 Dose: 500 mg Rosuvastatin Calcium (Crestor) 40 mg PO HS [facility] Last Admin: 04/20/17 21:20 Dose: 40 mg Fluticasone/Salmeterol (Advair Diskus 250/50) 1 puff INH RQ12 [facility] Tamsulosin HCl (Flomax) 0.4 mg PO DAILY [facility] Last Admin: 04/21/17 10:25 Dose: 0.4 mg Tiotropium [place] (Spiriva) 18 mcg INH RQ24 [facility] Last Admin: 04/21/17 14:24 Dose: Not Given - Labs Labs: 04/21/17 13:26 04/21/17 13:26 PT 13.0 SECONDS (9.7-12.2) H 04/20/17 08:12 INR 1.1 04/20/17 08:12 APTT 32 SECONDS (21-34) 04/18/17 11:36 - Constitutional Appears: Well - Head Exam Head Exam: ATRAUMATIC, NORMAL INSPECTION, NORMOCEPHALIC - Eye Exam Eye Exam: EOMI, Normal appearance, PERRL Pupil Exam: NORMAL ACCOMODATION, PERRL - ENT Exam ENT Exam: Mucous Membranes Moist, Normal Exam - Neck Exam Neck Exam: Full ROM, Normal Inspection. absent: Lymphadenopathy - Respiratory Exam Respiratory Exam: Decreased Breath Sounds - Cardiovascular Exam Cardiovascular Exam: REGULAR RHYTHM, +S1, +S2 - GI/Abdominal Exam GI & Abdominal Exam: Soft, Diminished Bowel Sounds - Rectal Exam Rectal Exam: Deferred - Neurological Exam Neurological Exam: Alert, Oriented x3 Assessment and Plan (1) CHF (congestive heart failure) Status: Acute (2) Chest pain Status: Acute (3) Anxiety Status: Chronic (4) Abdominal pain, RLQ Status: Acute (5) Abdominal pain, RUQ Status: Acute (6) Abdominal pain, RUQ Status: Acute (7) Acute chest pain Status: Acute (8) Blood pressure instability Status: Acute (9) CHF exacerbation Status: Acute (10) COPD exacerbation Status: Acute (11) Chest pain Status: Acute (12) Chest pain, atypical Status: Acute (13) Diverticulosis Status: Acute (14) Headache Status: Acute (15) Labile hypertension Status: Acute (16) Migraine Status: Acute (17) UTI (urinary tract infection) Status: Acute (18) Weakness of both lower extremities Status: Acute (19) A-fib Status: Chronic (20) Abdominal pain, suprapubic Status: Chronic (21) COPD (chronic obstructive pulmonary disease) Status: Chronic (22) Chronic headache disorder Status: Chronic (23) DMII (diabetes mellitus, type 2) Status: Chronic (24) Dizziness Status: Chronic (25) Dyslipidemia Status: Chronic (26) Generalized weakness Status: Chronic (27) Head ache Status: Chronic (28) Hx of CABG Status: Chronic (29) Hypertension Status: Chronic (30) Left-sided chest wall pain Status: Chronic (31) Orthostatic tremor Status: Chronic (32) Pacemaker Status: Chronic (33) Unspecified abnormalities of gait and mobility Status: Chronic - Assessment and Plan (Free Text) Plan: case discussed with team discharge planning to home tomorrow AM cleared by gi for op f/u cleared cardiac quiles to be d/jes on PO lasix and f/u op f/u with me pmd in office as instructed
--- NOTE | 2017-04-22 07:49 | CP.PCM.PN ---
Subjective - Date & Time of Evaluation Date of Evaluation: 04/22/17 Time of Evaluation: 07:49 - Subjective Subjective: PATIENT WAS ADMITTED FOR CHF AND CHEST PAIN; DENIES CHEST PAIN ABDOMINAL PAIN; NAUSEA OR VOMITING NO SIGN OF DISTRESS NOTED Objective - Vital Signs/Intake and Output Vital Signs (last 24 hours): Temp Pulse Resp BP Pulse Ox 97.4 F L 64 18 117/64 97 04/22/17 00:00 04/22/17 00:00 04/22/17 00:00 04/22/17 00:00 04/22/17 00:00 - Medications Medications: Current Medications Acetaminophen (Tylenol 325mg Tab) 325 mg PO Q6 PRN PRN Reason: Pain, Mild (1-3) Last Admin: 04/22/17 06:22 Dose: 325 mg Alprazolam (Xanax) 0.5 mg PO BID [facility] Last Admin: 04/21/17 21:10 Dose: 0.5 mg Amlodipine Besylate (Norvasc) 2.5 mg PO DAILY [facility] Last Admin: 04/21/17 10:25 Dose: 2.5 mg Ascorbic Acid (Vitamin C 500 Mg Tab) 500 mg PO DAILY [facility] Last Admin: 04/21/17 10:27 Dose: 500 mg Aspirin (Aspirin) 325 mg PO DAILY [facility] Last Admin: 04/21/17 10:25 Dose: 325 mg Carvedilol (Coreg) 25 mg PO BID [facility] Last Admin: 04/21/17 17:35 Dose: 25 mg Clopidogrel Bisulfate (Plavix) 75 mg PO DAILY [facility] Last Admin: 04/21/17 10:25 Dose: 75 mg Dicyclomine HCl (Bentyl) 20 mg PO TID PRN PRN Reason: Abdominal cramping Last Admin: 04/22/17 04:53 Dose: 20 mg Enalapril Maleate (Vasotec) 5 mg PO BID [facility] Last Admin: 04/21/17 17:35 Dose: 5 mg Enoxaparin Sodium (Lovenox) 40 mg SC DAILY [facility] Last Admin: 04/21/17 10:26 Dose: 40 mg Famotidine (Pepcid) 40 mg PO HS [facility] Last Admin: 04/21/17 21:10 Dose: 40 mg Fluticasone Propionate (Flonase) 2 spr SHAYY DAILY PRN PRN Reason: Allergy symptoms Furosemide (Lasix) 20 mg IVP DAILY [facility] Last Admin: 04/21/17 14:30 Dose: 20 mg Loratadine (Claritin) 10 mg PO HS [facility] Last Admin: 04/21/17 21:10 Dose: 10 mg Metformin HCl (Glucophage) 500 mg PO BID [facility] Last Admin: 04/20/17 12:42 Dose: Not Given Multivitamins (Hexavitamin) 1 tab PO DAILY [facility] Last Admin: 04/21/17 10:25 Dose: 1 tab Ranolazine (Ranexa) 500 mg PO DAILY [facility] Last Admin: 04/21/17 10:25 Dose: 500 mg Rosuvastatin Calcium (Crestor) 40 mg PO HS [facility] Last Admin: 04/21/17 21:10 Dose: 40 mg Fluticasone/Salmeterol (Advair Diskus 250/50) 1 puff INH RQ12 [facility] Tamsulosin HCl (Flomax) 0.4 mg PO DAILY [facility] Last Admin: 04/21/17 10:25 Dose: 0.4 mg Tiotropium [place] (Spiriva) 18 mcg INH RQ24 [facility] Last Admin: 04/21/17 14:24 Dose: Not Given - Labs Labs: 04/21/17 13:26 04/21/17 13:26 PT 13.0 SECONDS (9.7-12.2) H 04/20/17 08:12 INR 1.1 04/20/17 08:12 APTT 32 SECONDS (21-34) 04/18/17 11:36 Assessment and Plan - Assessment and Plan (Free Text) Assessment: A/P PATIENT IS SEEN AND EXAMINED AT THE BEDSIDE LUNG SOUND CLEAR; LAST BM WAS YESTERDAY; ABD US UNREMARKABLE DISCUSS WITH DR BRASHER AND RACHEAL PATIENT FOR DC FOLLOW UP WITH DR. BRASHER IN THE OFFICE WITHIN 1 WEEK---CALL FOR APPT TIME. FOLLOW UP WITH DR. THOMPSON (STOMACH DOCTOR) IN THE OFFICE WITHIN 1-2 WEEKS OF DISCHARGE---CALL FOR APPT TIME. FOLLOW UP WITH YOUR HIGHWAY SAFETY ENGINEER (PAT SPRING) IN THE OFFICE WITHIN 1 WEEK. YOU WILL NEED FURTHER TESTING OUTPATIENT FOR YOUR HEART. CONTINUE HOME MEDICATIONS USUAL. NEW PRESCRIPTION PER DR. ROLLINS IS LASIX ( WATER PILL) FOR YOUR HEART. TAKE EXACTLY PRESCRIBED. IF YOU HAVE ANY FURTHER CONCERNS OR QUESTIONS, CONTACT DR. BRASHER. DISCUSS WITH PATIENT WHO AGREE AND VERBALIZED UNDERSTANDING
--- NOTE | 2017-04-22 07:50 | PCM.HF ---
Heart Failure Core Measure - Heart Failure Ejection Fraction: Less Than 40 % SHANIQUE Inhibitor Prescribed: Yes Beta-Awa Prescribed: Metoprolol Succinate Angiotensin II Receptor Awa Prescribed: No Contraindication/Reason for not providing: ARB AnticoagulationTherapy for Atrial Fibrillation/Atrialflutter: No Contraindication/Reason for not providing: NO HX OF AFIB Aldosterone Antagonist Prescribed: No Contraindication/Reason for not providing: DENTAL LABORATORY SUPERVISOR CHOICE Hydralazine Nitrate Prescribed: No Contraindication/Reason for not providing: PATIENT IS ON NORVASC Implantable Cardioverter Defibrillator Therapy: No Contraindication/Reason for not providing: F/U WITH DENTAL LABORATORY SUPERVISOR OUT PATIENT Cardiac Resynchronization Therapy Prescribed: No Contraindication/Reason for not providing: F/U WITH DENTAL LABORATORY SUPERVISOR OUT PATIENT - Follow up Will be discharged to: Home Follow Up Date (must be within 7 days from discharge): 04/28/17 Follow Up Time: 09:00
--- NOTE | 2017-04-22 09:42 | CP.PCM.PN ---
Subjective - Date & Time of Evaluation Date of Evaluation: 04/22/17 Time of Evaluation: 09:41 - Subjective Subjective: PGY2 medicine progress note for Dr. Dumont's service Patient seen and examined. Patient complaining of sharp pain in left chest that is reproducible on examination. Patient also complains of cough productive of white phlegm, headache, dizziness, and nausea. Patient states pain in chest is worse with deep inspiration. Patient requesting to be discharged home tomorrow when family is available to help him at home. Objective - Vital Signs/Intake and Output Vital Signs (last 24 hours): Temp Pulse Resp BP Pulse Ox 98.1 F 80 20 177/75 H 98 04/22/17 07:50 04/22/17 07:50 04/22/17 07:50 04/22/17 07:50 04/22/17 07:50 - Medications Medications: Current Medications Acetaminophen (Tylenol 325mg Tab) 325 mg PO Q6 PRN PRN Reason: Pain, Mild (1-3) Last Admin: 04/22/17 06:22 Dose: 325 mg Alprazolam (Xanax) 0.5 mg PO BID [facility] Last Admin: 04/21/17 21:10 Dose: 0.5 mg Amlodipine Besylate (Norvasc) 2.5 mg PO DAILY [facility] Last Admin: 04/21/17 10:25 Dose: 2.5 mg Ascorbic Acid (Vitamin C 500 Mg Tab) 500 mg PO DAILY [facility] Last Admin: 04/21/17 10:27 Dose: 500 mg Aspirin (Aspirin) 325 mg PO DAILY [facility] Last Admin: 04/21/17 10:25 Dose: 325 mg Carvedilol (Coreg) 25 mg PO BID [facility] Last Admin: 04/21/17 17:35 Dose: 25 mg Clopidogrel Bisulfate (Plavix) 75 mg PO DAILY [facility] Last Admin: 04/21/17 10:25 Dose: 75 mg Dicyclomine HCl (Bentyl) 20 mg PO TID PRN PRN Reason: Abdominal cramping Last Admin: 04/22/17 04:53 Dose: 20 mg Enalapril Maleate (Vasotec) 5 mg PO BID [facility] Last Admin: 04/21/17 17:35 Dose: 5 mg Enoxaparin Sodium (Lovenox) 40 mg SC DAILY [facility] Last Admin: 04/21/17 10:26 Dose: 40 mg Famotidine (Pepcid) 40 mg PO HS [facility] Last Admin: 04/21/17 21:10 Dose: 40 mg Fluticasone Propionate (Flonase) 2 spr SHAYY DAILY PRN PRN Reason: Allergy symptoms Furosemide (Lasix) 20 mg IVP DAILY [facility] Last Admin: 04/21/17 14:30 Dose: 20 mg Loratadine (Claritin) 10 mg PO HS [facility] Last Admin: 04/21/17 21:10 Dose: 10 mg Metformin HCl (Glucophage) 500 mg PO BID [facility] Last Admin: 04/20/17 12:42 Dose: Not Given Multivitamins (Hexavitamin) 1 tab PO DAILY [facility] Last Admin: 04/21/17 10:25 Dose: 1 tab Ranolazine (Ranexa) 500 mg PO DAILY [facility] Last Admin: 04/21/17 10:25 Dose: 500 mg Rosuvastatin Calcium (Crestor) 40 mg PO HS [facility] Last Admin: 04/21/17 21:10 Dose: 40 mg Fluticasone/Salmeterol (Advair Diskus 250/50) 1 puff INH RQ12 [facility] Tamsulosin HCl (Flomax) 0.4 mg PO DAILY [facility] Last Admin: 04/21/17 10:25 Dose: 0.4 mg Tiotropium [place] (Spiriva) 18 mcg INH RQ24 [facility] Last Admin: 04/21/17 14:24 Dose: Not Given - Labs Labs: 04/21/17 13:26 04/21/17 13:26 PT 13.0 SECONDS (9.7-12.2) H 04/20/17 08:12 INR 1.1 04/20/17 08:12 APTT 32 SECONDS (21-34) 04/18/17 11:36 - Constitutional Appears: No Acute Distress - Head Exam Head Exam: ATRAUMATIC, NORMOCEPHALIC - Eye Exam Eye Exam: EOMI - ENT Exam ENT Exam: Mucous Membranes Moist - Respiratory Exam Respiratory Exam: Chest Wall Tenderness (left chest), Decreased Breath Sounds ( patient taking shallow breaths), Clear to Ausculation Bilateral Additional comments: well-healed midline scar, left chest pacemaker battery palpated - Cardiovascular Exam Cardiovascular Exam: +S1, +S2 - GI/Abdominal Exam GI & Abdominal Exam: Soft. absent: Tenderness - Extremities Exam Additional comments: right lower leg with ulcer wrapped in clean gauze, trace pitting edema - Neurological Exam Neurological Exam: Alert, Awake - Skin Skin Exam: Warm Assessment and Plan - Assessment and Plan (Free Text) Assessment: 72yM presenting admitted with complaints of left sided chest pain and right sided abdominal pain Chest pain likely non-cardiac as it is reproducible on examination Cardiology, Dr. Guaman, help appreciated rec follow up with outpt wireless architect, Dr. Hansen CAD continue ranexa 500mg daily plavix 75mg daily Hx CHF BNP 2290 on admission pt currently being diuresed with IV lasix 20mg daily to be discharged on PO lasix Transaminitis resolved GI, Dr. Rea, Dr. Joshua, help appreciated likely elevated secondary to congestive hepatopathy from hx of CHF Abdominal US reviewed with cholecystectomy, no liver pathology CT Abdominal Angio with patent Celiac, SM, FELISA Recommend outpt colonoscopy with rectosigmoid thickening and recent colitis, discussed with cardiology, pt needs cardiac optimization prior to procedure HTN continue coreg 25mg PO BID enalapril 5mg PO daily norvasc 2.5mg PO daily Diabetes continue metformin 500gm PO BID BPH continue flomax 0.4mg PO daily Hyperlipidemia continue crestor 40mg PO HS Prophylaxis lovenox 40mg SC daily pepcid 40mg PO HS All management as per Dr. Dumont
[2017-04-22] MEDS: Ranolazine 500 mg Extended Release Tablets PO SCH (09:55)
[2017-04-22] MEDS: Multiple Vitamins Tab PO SCH (09:55)
[2017-04-22] MEDS: Tiotropium 18 mcg Cap For Inhalation INH SCH (09:55)
[2017-04-22] MEDS: Fluticasone-Salmeterol 250-50mcg Diskus INH SCH ×2 (09:56→19:06)
[2017-04-22] MEDS: Enoxaparin 40 mg Syringe SC SCH (09:58)
--- NOTE | 2017-04-22 18:38 | CARD ---
APPROVED REPORT EKG Measurement Heart [id number] ID [id number] <Conclusion> Atrial-paced rhythm with prolonged AV conduction Left bundle branch block Abnormal ECG
--- NOTE | 2017-04-22 21:26 | CP.PCM.PN ---
Subjective - Date & Time of Evaluation Date of Evaluation: 04/22/17 Time of Evaluation: 09:00 - Subjective Subjective: clinically same Objective - Vital Signs/Intake and Output Vital Signs (last 24 hours): Temp Pulse Resp BP Pulse Ox 97.4 F L 70 16 129/82 98 04/22/17 18:00 04/22/17 20:04 04/22/17 18:00 04/22/17 18:00 04/22/17 15:48 Intake and Output: 04/22/17 04/23/17 18:59 06:59 Intake Total 480 Balance 480 - Medications Medications: Current Medications Acetaminophen (Tylenol 325mg Tab) 325 mg PO Q6 PRN PRN Reason: Pain, Mild (1-3) Last Admin: 04/22/17 06:22 Dose: 325 mg Alprazolam (Xanax) 0.5 mg PO BID [facility] Last Admin: 04/22/17 20:41 Dose: 0.5 mg Amlodipine Besylate (Norvasc) 2.5 mg PO DAILY [facility] Last Admin: 04/22/17 09:58 Dose: 2.5 mg Ascorbic Acid (Vitamin C 500 Mg Tab) 500 mg PO DAILY [facility] Last Admin: 04/22/17 09:55 Dose: 500 mg Aspirin (Aspirin) 325 mg PO DAILY [facility] Last Admin: 04/22/17 09:58 Dose: 325 mg Carvedilol (Coreg) 25 mg PO BID [facility] Last Admin: 04/22/17 17:06 Dose: 25 mg Clopidogrel Bisulfate (Plavix) 75 mg PO DAILY [facility] Last Admin: 04/22/17 09:58 Dose: 75 mg Dicyclomine HCl (Bentyl) 20 mg PO TID PRN PRN Reason: Abdominal cramping Last Admin: 04/22/17 04:53 Dose: 20 mg Enalapril Maleate (Vasotec) 5 mg PO BID [facility] Last Admin: 04/22/17 17:04 Dose: 5 mg Enoxaparin Sodium (Lovenox) 40 mg SC DAILY [facility] Last Admin: 04/22/17 09:58 Dose: 40 mg Famotidine (Pepcid) 40 mg PO HS [facility] Last Admin: 04/22/17 21:21 Dose: 40 mg Fluticasone Propionate (Flonase) 2 spr SHAYY DAILY PRN PRN Reason: Allergy symptoms Furosemide (Lasix) 20 mg IVP DAILY [facility] Last Admin: 04/22/17 10:00 Dose: 20 mg Ibuprofen (Motrin Tab) 400 mg PO Q8 PRN PRN Reason: Headache Last Admin: 04/22/17 14:56 Dose: 400 mg Loratadine (Claritin) 10 mg PO HS [facility] Last Admin: 04/22/17 21:21 Dose: 10 mg Metformin HCl (Glucophage) 500 mg PO BID [facility] Last Admin: 04/22/17 17:04 Dose: 500 mg Multivitamins (Hexavitamin) 1 tab PO DAILY [facility] Last Admin: 04/22/17 09:55 Dose: 1 tab Ranolazine (Ranexa) 500 mg PO DAILY [facility] Last Admin: 04/22/17 09:55 Dose: 500 mg Rosuvastatin Calcium (Crestor) 40 mg PO HS [facility] Last Admin: 04/22/17 21:21 Dose: 40 mg Fluticasone/Salmeterol (Advair Diskus 250/50) 1 puff INH RQ12 [facility] Last Admin: 04/22/17 19:06 Dose: 1 puff Tamsulosin HCl (Flomax) 0.4 mg PO DAILY [facility] Last Admin: 04/22/17 09:55 Dose: 0.4 mg Tiotropium [place] (Spiriva) 18 mcg INH RQ24 [facility] Last Admin: 04/22/17 09:55 Dose: 18 mcg - Labs Labs: 04/21/17 13:26 04/21/17 13:26 PT 13.0 SECONDS (9.7-12.2) H 04/20/17 08:12 INR 1.1 04/20/17 08:12 APTT 32 SECONDS (21-34) 04/18/17 11:36 Assessment and Plan (1) CHF (congestive heart failure) Status: Acute (2) Chest pain Status: Acute (3) Anxiety Status: Chronic (4) Abdominal pain, RLQ Status: Acute (5) Abdominal pain, RUQ Status: Acute (6) Abdominal pain, RUQ Status: Acute (7) Acute chest pain Status: Acute (8) Blood pressure instability Status: Acute (9) CHF exacerbation Status: Acute (10) COPD exacerbation Status: Acute (11) Chest pain Status: Acute (12) Chest pain, atypical Status: Acute (13) Diverticulosis Status: Acute (14) Headache Status: Acute (15) Labile hypertension Status: Acute (16) Migraine Status: Acute (17) UTI (urinary tract infection) Status: Acute (18) Weakness of both lower extremities Status: Acute (19) A-fib Status: Chronic (20) Abdominal pain, suprapubic Status: Chronic (21) COPD (chronic obstructive pulmonary disease) Status: Chronic (22) Chronic headache disorder Status: Chronic (23) DMII (diabetes mellitus, type 2) Status: Chronic (24) Dizziness Status: Chronic (25) Dyslipidemia Status: Chronic (26) Generalized weakness Status: Chronic (27) Head ache Status: Chronic (28) Hx of CABG Status: Chronic (29) Hypertension Status: Chronic (30) Left-sided chest wall pain Status: Chronic (31) Orthostatic tremor Status: Chronic (32) Pacemaker Status: Chronic (33) Unspecified abnormalities of gait and mobility Status: Chronic
[2017-04-23] MEDS: Fluticasone-Salmeterol 250-50mcg Diskus INH SCH (08:05)
[2017-04-23] MEDS: Tiotropium 18 mcg Cap For Inhalation INH SCH (08:05)
[2017-04-23 08:24] VITALS: PULSE 98
[2017-04-23 08:53] VITALS: RESP 18; TEMP 97.5; O2SAT 98
[2017-04-23] MEDS: Multiple Vitamins Tab PO SCH (09:40)
[2017-04-23 09:41] VITALS: BP 169/82
[2017-04-23] MEDS: Enoxaparin 40 mg Syringe SC SCH (09:43)
[2017-04-23] MEDS: Ranolazine 500 mg Extended Release Tablets PO SCH (09:52)
[2017-04-23] MEDS ORDERED: Influenza Vaccine 60 mcg/0.5 mL SYR (4YR UP) IM ONE (14:20)
[2017-04-27 19:54] LABS: LKM-1 Ab (IgG) <=20.0 U (<=20.0)
== END 2017-04-23 14:49 | disposition home or self-care (01) | DRG 292 ==
LOC: C.ER 10:20 → C.9E 13:10 → C.5S 15:28 → OBSVTOIN 04-20 14:30
PROVIDERS: ADMIT Internal Medicine Nephrology; ATTEND Internal Medicine Nephrology
DX: I11.0 Hypertensive heart disease with heart failure (principal); J44.1 Chronic obstructive pulmonary disease with (acute) exacerbation; I49.5 Sick sinus syndrome; I48.2 Chronic atrial fibrillation; E11.9 Type 2 diabetes mellitus without complications; E78.00 Pure hypercholesterolemia, unspecified; G43.909 Migraine, unspecified, not intractable, without status migrainosus; N39.0 Urinary tract infection, site not specified; F41.9 Anxiety disorder, unspecified; G89.29 Other chronic pain; K57.90 Diverticulosis of intestine, part unspecified, without perforation or abscess without bleeding; I50.9 Heart failure, unspecified; R53.1 Weakness; Z95.1 Presence of aortocoronary bypass graft; R25.1 Tremor, unspecified; Z95.0 Presence of cardiac pacemaker; R26.9 Unspecified abnormalities of gait and mobility; Z79.02 Long term (current) use of antithrombotics/antiplatelets; Z79.899 Other long term (current) drug therapy; Z79.51 Long term (current) use of inhaled steroids; Z79.82 Long term (current) use of aspirin; Z79.84 Long term (current) use of oral hypoglycemic drugs; Z88.5 Allergy status to narcotic agent; I25.10 Atherosclerotic heart disease of native coronary artery without angina pectoris; M19.90 Unspecified osteoarthritis, unspecified site; H91.91 Unspecified hearing loss, right ear; M81.0 Age-related osteoporosis without current pathological fracture; K21.9 Gastro-esophageal reflux disease without esophagitis; N40.0 Benign prostatic hyperplasia without lower urinary tract symptoms; Z87.440 Personal history of urinary (tract) infections; R74.0 Nonspecific elevation of levels of transaminase and lactic acid dehydrogenase [LDH]; I44.7 Left bundle-branch block, unspecified; R42 Dizziness and giddiness; R19.7 Diarrhea, unspecified; R10.31 Right lower quadrant pain; R10.11 Right upper quadrant pain; K76.1 Chronic passive congestion of liver

== ENCOUNTER 2018-05-24 10:48 | Day surgery (SDC) | payer OTHER ==
[2018-05-24] MEDS ORDERED: Lidocaine 4% (Laryng-O-Jet) Kit MM ONE (12:56)
[2018-05-24] MEDS ORDERED: Midazolam 2 MG/2 ML VIAL ONE ×2 (13:02)
[2018-05-24 15:24] VITALS: BMI 26.4
--- NOTE | 2018-05-26 22:52 | CARD ---
APPROVED REPORT Date of service: 05/24/2018 EXAM: Transesophageal echocardiogram with color flow Doppler. INDICATION Infection : Rule out subacute bacterial endocarditis Aortic Valve AI P 1/2 [id number] Mitral Valve E/A ratio0.0 TDI E/Lateral E'0.0E/Medial E'0.0 Reason For Test : Rule out endocarditis. PROCEDURE After obtaining informed consent, patient underwent transesophageal echo in the [employer]. Type of Sedation : Conscious Sedation Sedation was administered by . Sedation was achieved with Versed, Fentanyl intravenously. Transesophageal probe was inserted and advanced into esophagus without difficulty. Echo enhancement indication: R/O Septal defect. Echo enhancement agent administered: Agitated Saline The KAELYN was performed without complications. Throughout the procedure, the blood pressure, pulse oximetry, cardiac rhythm, and rate were monitored. The patient tolerated the procedure without adverse effects. Recovery from conscious sedation was uneventful and vital signs were stable. LEFT VENTRICLE The left ventricle is borderline enlarged. There is mild to moderate concentric left ventricular hypertrophy. Left ventricle systolic function is moderately impaired. The Ejection Fraction is 30-35%. Regional wall motion abnormalities noted. There is mild to moderate hypokinesis in the mid-inferoseptal wall. Transmitral Doppler flow pattern is Grade II-pseudonormal filling dynamics. No left ventricle thrombus noted on this study. There is no ventricular septal defect visualized. There is no left ventricular aneurysm. There is no mass noted in the left ventricle. RIGHT VENTRICLE The right ventricle is normal size. The right ventricle is mildly hypertrophied. The right ventricular systolic function is normal. ATRIA The left atrium is mildly dilated. The right atrium size is normal. There is hyperechoic mass on the atrial lead in the right atrium. The interatrial septum is intact with no evidence for an atrial septal defect. AORTIC VALVE The aortic valve is moderately thickened. There is mild to moderate aortic regurgitation. There is no aortic valvular stenosis. There is no aortic valvular vegetation. MITRAL VALVE The mitral valve is thickened but opens well. There is no evidence of mitral valve prolapse. There is no mitral valve stenosis. Mitral regurgitation is mild to moderate. TRICUSPID VALVE The tricuspid valve leaflets are thickened , but open well. There is mild tricuspid regurgitation. There is no tricuspid valve prolapse or vegetation. There is no tricuspid valve stenosis. PULMONIC VALVE The pulmonary valve is normal in structure. There is no pulmonic valvular regurgitation. There is no pulmonic valvular stenosis. GREAT VESSELS The aortic root is normal in size. The IVC is normal in size and collapses >50% with inspiration. PERICARDIAL EFFUSION There is no pericardial effusion. <Conclusion> Left ventricle systolic function is moderately impaired. The Ejection Fraction is 30-35%. Regional wall motion abnormalities noted. There is mild to moderate hypokinesis in the mid-inferoseptal wall. Transmitral Doppler flow pattern is Grade II-pseudonormal filling dynamics. There is mild to moderate aortic regurgitation. Mitral regurgitation is mild to moderate. There is mild tricuspid regurgitation. The right atrium size is normal. There is hyperechoic mass on the atrial lead in the right atrium.( DDx vegetation vs. fibrous tissue growth )
== END 2018-05-24 19:45 | disposition short-term general hospital (02) ==
LOC: C.CATHLAB 10:48
PROVIDERS: ATTEND Internal Medicine Interventional Cardiology
DX: I34.0 Nonrheumatic mitral (valve) insufficiency (principal); I11.0 Hypertensive heart disease with heart failure; I50.9 Heart failure, unspecified; R07.89 Other chest pain; I25.5 Ischemic cardiomyopathy; Z95.5 Presence of coronary angioplasty implant and graft; I48.91 Unspecified atrial fibrillation; Z95.0 Presence of cardiac pacemaker; E11.9 Type 2 diabetes mellitus without complications; J44.9 Chronic obstructive pulmonary disease, unspecified; F41.9 Anxiety disorder, unspecified; Z90.79 Acquired absence of other genital organ(s); Z90.49 Acquired absence of other specified parts of digestive tract; Z88.5 Allergy status to narcotic agent
CPT/HCPCS: 82948; 93312; J2250; J3010